=== PATIENT | female | born 1935 | race Caucasian/White ===

== ENCOUNTER 2019-01-05 15:32 | Inpatient (IN) | payer MEDICARE, BC ==
[~2019-01-05] VITALS: Ht 162.6 cm; Wt 57.3 kg
--- NOTE | 2019-01-05 15:42 | PHYS DOC ---
Past Medical History Past Medical History: A-Fib, Hypertension, Other (valvular abnormality) Past Surgical History: Pacemaker Alcohol Use: None Drug Use: None Adult General HPI HPI Patient is a 83 year old 83-year-old female who presents with a head injury after syncopal episode. She struck the back of her head when hitting the ground. Denies any chest pain. Has a previous history of syncopal episodes. Also history significant for atrial fibrillation. No reported blood thinners.[] Review of Systems Review of Systems Constitutional: Denies fever or chills [] Eyes: Denies change in visual acuity, redness, or eye pain [] HENT: Denies nasal congestion or sore throat [] Respiratory: Denies cough or shortness of breath [] Cardiovascular: No chest pain or palpitations[] GI: Denies abdominal pain, nausea, vomiting, bloody stools or diarrhea [] : Denies dysuria or hematuria [] Musculoskeletal: Denies back pain or joint pain [] Integument: Denies rash or skin lesions [] Neurologic: Denies headache, focal weakness or sensory changes [] Endocrine: Denies polyuria or polydipsia [] All other systems were reviewed and found to be within normal limits, except as documented in this note. Current Medications Current Medications Current Medications Medications (Trade) Dose Ordered Sig/Inocente Start Time Stop Time Status Last Admin Dose Admin Diphtheria/ Tetanus/Acell Pertussis (Boostrix) 0.5 ml ONCE ONCE 01/05/19 15:45 01/05/19 16:00 DC 01/05/19 16:27 0.5 ML Allergies Allergies Allergies Coded Allergies Type Severity Reaction Last Updated Verified No Known Drug Allergies 01/05/19 No Physical Exam Physical Exam Constitutional: Well developed, well nourished, no acute distress, non-toxic appearance. [] HENT: Normocephalic, occipital head wound, bilateral external ears normal, TMs are clear, no blood no fluid, oropharynx moist, no oral exudates, nose normal. [ ] Eyes: PERRLA, EOMI, conjunctiva normal, no discharge. [] Neck: Normal range of motion, no tenderness, supple, no stridor. [] Cardiovascular:Heart rate regular rhythm, no murmur [] Lungs & Thorax: Bilateral breath sounds clear to auscultation [] Abdomen: Bowel sounds normal, soft, no tenderness, no masses, no pulsatile masses. [] Skin: Warm, dry, no erythema, no rash. [] Back: No tenderness, no CVA tenderness. [] Extremities: No tenderness, no cyanosis, no clubbing, ROM intact, no edema. [] Neurologic: Alert and oriented X 3, normal motor function, normal sensory function, no focal deficits noted. [] Psychologic: Affect normal, judgement normal, mood normal. [] Current Patient Data Vital Signs Vital Signs Date Time Temp Pulse Resp B/P (MAP) Pulse Ox O2 Delivery O2 Flow Rate FiO2 01/05/19 15:48 97.6 93 16 119/73 (88) 93 Room Air 97.6 Lab Values Laboratory Tests Test 01/05/19 15:40 01/05/19 16:30 White Blood Count 5.7 x10^3/uL (4.0-11.0) Red Blood Count 4.10 x10^6/uL (3.50-5.40) Hemoglobin 11.9 g/dL (12.0-15.5) L Hematocrit 36.4 % (36.0-47.0) Mean Corpuscular Volume 89 fL (79-100) Mean Corpuscular Hemoglobin 29 pg (25-35) Mean Corpuscular Hemoglobin Concent 33 g/dL (31-37) Red Cell Distribution Width 16.4 % (11.5-14.5) H Platelet Count 151 x10^3/uL (140-400) Neutrophils (%) (Auto) 66 % (31-73) Lymphocytes (%) (Auto) 22 % (24-48) L Monocytes (%) (Auto) 5 % (0-9) Eosinophils (%) (Auto) 5 % (0-3) H Basophils (%) (Auto) 1 % (0-3) Neutrophils # (Auto) 3.8 x10^3uL (1.8-7.7) Lymphocytes # (Auto) 1.3 x10^3/uL (1.0-4.8) Monocytes # (Auto) 0.3 x10^3/uL (0.0-1.1) Eosinophils # (Auto) 0.3 x10^3/uL (0.0-0.7) Basophils # (Auto) 0.1 x10^3/uL (0.0-0.2) Prothrombin Time 15.3 SEC (11.7-14.0) H Prothrombin Time INR 1.2 (0.8-1.1) H Sodium Level 143 mmol/L (136-145) Potassium Level 3.8 mmol/L (3.5-5.1) Chloride Level 105 mmol/L (98-107) Carbon Dioxide Level 29 mmol/L (21-32) Anion Gap 9 (6-14) Blood Urea Nitrogen 27 mg/dL (7-20) H Creatinine 1.4 mg/dL (0.6-1.0) H Estimated GFR (Cockcroft-Gault) 35.8 BUN/Creatinine Ratio 19 (6-20) Glucose Level 123 mg/dL (70-99) H Calcium Level 8.5 mg/dL (8.5-10.1) Magnesium Level 2.0 mg/dL (1.8-2.4) Total Bilirubin 0.4 mg/dL (0.2-1.0) Aspartate Amino Transferase (AST) 23 U/L (15-37) Alanine Aminotransferase (ALT) 18 U/L (14-59) Alkaline Phosphatase 59 U/L (46-116) Troponin I Quantitative < 0.017 ng/mL (0.000-0.055) CO-Jrc-U-Type Natriuretic Peptide 2187 pg/mL (0-449) H Total Protein 7.1 g/dL (6.4-8.2) Albumin 3.0 g/dL (3.4-5.0) L Albumin/Globulin Ratio 0.7 (1.0-1.7) L Ammonia < 10 mcmol/L (11-34) L Laboratory Tests 01/05/19 15:40 Laboratory Tests 01/05/19 15:40 EKG EKG EKG has a regular rhythm with frequent PVCs, however P waves are not identified. Normal axis, QTC is prolonged at 511 ms, no ST elevations, no old EKG available for comparison. This was interpreted by me at 1632[] Radiology/Procedures Radiology/Procedures HISTORY: Syncope injury to back of head CT brain CT scan of brain was done without contrast. A skull fracture is not identified. There is posterior extracranial soft tissue swelling. Sinuses are clear. There is no intracranial hemorrhage or subdural hematoma. There is mild atrophy. Ventricles are mildly dilated secondary to atrophy. There is extensive decreased density in the white matter from chronic microvascular changes. IMPRESSION: 1. Extracranial swelling posteriorly. 2. No intracranial hemorrhage or subdural hematoma. 3. Atrophy and chronic microvascular change in the white matter. End impression CT cervical spine Axial CT images were obtained to the cervical spine. Sagittal and coronal reconstructed images were reviewed. Visualized lungs are clear. Thyroid is homogeneous. There are degenerative changes in the cervical spine. There is marked facet arthritis at multiple levels. There is no acute fracture. There is mild subluxation at C5-6 secondary to facet arthritis. IMPRESSION: 1. Marked degenerative changes in the cervical spine. 2. Mild degenerative subluxation at C5-6. 3. No acute fracture. Chest x-ray shows pacemaker, possible left-sided pleural effusion, no infiltrate is identified.[] Course & Med Decision Making Course & Med Decision Making Pertinent Labs and Imaging studies reviewed. (See chart for details) ED course: Patient arrived, was placed in bed, in tolerated exam well. She was transported to and from [place] with any complications. 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 Her head wound was evaluated and treated. Consultation was made with the hospitalist service for admission. Discussed findings and plan with patient and family who voiced understanding. All questions were answered. Patient was admitted in improved condition. Medical decision makin-year-old female with syncopal episode, first of cardiac enzymes are negative, what appears to be an effusion on her chest x- ray. Given the potential for cardiac/valvular abnormality of uncertain type, concerned about diuresing her especially in light of normal oxygen saturation until there is an echo available. She does not endorse any cough or fever that leads me to believe that she has pneumonia. Still waiting on urine to see if there is a urinary tract infection that may have triggered some of today's events. Her tetanus vaccine status was updated.[] Dragon Disclaimer Dragon Disclaimer This electronic medical record was generated, in whole or in part, using a voice recognition dictation system. Departure Departure Impression: Primary Impression: Syncope Additional Impression: Closed head injury Disposition: 09 ADMITTED INPATIENT Admitting Physician: Diallo Montaño Condition: IMPROVED Laceration Repair Lac Repair Indication: Left scalp laceration [] Procedure: The patient was placed in the appropriate position and the area was then cleansed and irrigated. The laceration was closed with 3 michelle. Total repaired wound length: 1.5 cm. Other Items: None The patient tolerated the procedure well. Hemostasis was achieved.. Complications: None. Problem Qualifiers Primary Impression: Syncope Syncope type: unspecified Qualified Codes: R55 - Syncope and collapse Additional Impression: Closed head injury Encounter type: initial encounter Qualified Codes: S09.90XA - Unspecified injury of head, initial encounter JUANITA BROOKS DO Jan 05, 2019 15:42
[2019-01-05] MEDS ORDERED: DIPHTH,PERTUSS(ACELL),TET TOX 0.5 ML DISP.SYRIN. VAX IM ONE (15:45)
[2019-01-05 15:55] LABS: BASO # 0.1 x10^3/uL (0.0-0.2); BASO % 1 % (0-3); EOS # 0.3 x10^3/uL (0.0-0.7); EOS % 5 % (0-3); HEMATOCRIT 36.4 % (36.0-47.0); HEMOGLOBIN 11.9 g/dL (12.0-15.5); LYMPH # 1.3 x10^3/uL (1.0-4.8); LYMPH % 22 % (24-48); MEAN CORPUSCULAR HEMOGLOBIN 29 pg (25-35); MEAN CORPUSCULAR HGB CONC 33 g/dL (31-37); MEAN CORPUSCULAR VOLUME 89 fL (79-100); MONO # 0.3 x10^3/uL (0.0-1.1); MONO % 5 % (0-9); NEUT # 3.8 x10^3uL (1.8-7.7); NEUT % 66 % (31-73); PLATELET COUNT 151 x10^3/uL (140-400); RED CELL DISTRIBUTION WIDTH 16.4 % (11.5-14.5); WHITE BLOOD COUNT 5.7 x10^3/uL (4.0-11.0)
[2019-01-05 16:03] LABS: PROTHROMBIN TIME PATIENT 15.3 SEC (11.7-14.0)
[2019-01-05 16:04] LABS: CALCIUM 8.5 mg/dL (8.5-10.1); CREATININE 1.4 mg/dL (0.6-1.0); GFR 35.8; POTASSIUM 3.8 mmol/L (3.5-5.1)
[2019-01-05 16:10] LABS: ALBUMIN/GLOBULIN RATIO 0.7 (1.0-1.7); TOTAL BILIRUBIN 0.4 mg/dL (0.2-1.0); TOTAL PROTEIN 7.1 g/dL (6.4-8.2)
--- NOTE | 2019-01-05 16:32 | RAD ---
CT brain without contrast, CT cervical spine without contrast. HISTORY: Syncope injury to back of head CT brain CT scan of brain was done without contrast. A skull fracture is not identified. There is posterior extracranial soft tissue swelling. Sinuses are clear. There is no intracranial hemorrhage or subdural hematoma. There is mild atrophy. Ventricles are mildly dilated secondary to atrophy. There is extensive decreased density in the white matter from chronic microvascular changes. IMPRESSION: 1. Extracranial swelling posteriorly. 2. No intracranial hemorrhage or subdural hematoma. 3. Atrophy and chronic microvascular change in the white matter. End impression CT cervical spine Axial CT images were obtained to the cervical spine. Sagittal and coronal reconstructed images were reviewed. Visualized lungs are clear. Thyroid is homogeneous. There are degenerative changes in the cervical spine. There is marked facet arthritis at multiple levels. There is no acute fracture. There is mild subluxation at C5-6 secondary to facet arthritis. IMPRESSION: 1. Marked degenerative changes in the cervical spine. 2. Mild degenerative subluxation at C5-6. 3. No acute fracture. Electronically signed by: Ty Redding MD (01/05/2019 4:29 PM) [facility]
--- NOTE | 2019-01-05 17:38 | RAD ---
EXAM: Chest, single view. HISTORY: Syncope. COMPARISON: None. FINDINGS: A frontal view of the chest is obtained. There is diffuse increased interstitial opacity. There is suspected left greater than right lower lobe and right mid thorax atelectasis or scarring. The heart is normal in size. There is no pneumothorax. There is a cardiac pacemaker with leads in expected position. IMPRESSION: Diffuse increased interstitial opacity suggesting interstitial infiltrate. There is suspected superimposed left greater than right lower lobe and right mid thorax atelectasis or scarring. Electronically signed by: Rula Uribe MD (01/05/2019 5:35 PM) [facility]
[2019-01-05] MEDS ORDERED: NITROGLYCERIN SUBLINGUAL 0.4 MG BOTTLE OF 25. SL PRN (18:00)
[2019-01-05] MEDS ORDERED: ACETAMINOPHEN 325 MG TABLET. PO PRN (18:00)
[2019-01-05] MEDS ORDERED: MORPHINE SULFATE 2 MG/ML VIAL. IV PRN (18:00)
[2019-01-05] MEDS ORDERED: ONDANSETRON PF 4 MG/2 ML VIAL. IV PRN (18:00)
[2019-01-05 20:00] VITALS: BP 184/96
[2019-01-05 21:00] VITALS: BP 184/96
--- NOTE | 2019-01-05 21:25 | HP ---
ADMIT DATE: 01/05/2019 CHIEF COMPLAINT: Syncope. HISTORY OF PRESENT ILLNESS: The patient is a pleasant 83-year-old female who states she was "discharged from [facility] to go home and " a few months ago. Now, she has been doing okay. 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 She had syncopal episode today. She fell on concrete, struck her head, had a laceration. It was repaired in the ER, she got a couple of michelle. We did a chest x-ray, which has shown a pleural effusion and a possible interstitial infiltrate. I have discussed the case with the ER physician. We are going to admit the patient and consult Cardiology. I am also going to get an echocardiogram to recheck the size of this aneurysm on her aortic arch. PAST MEDICAL HISTORY: AFib, hypertension, aortic arch aneurysm, pacemaker. ALLERGIES: None. FAMILY HISTORY: Coronary artery disease. SOCIAL HISTORY: She is retired. She does not drink, smoke or take drugs. MEDICATIONS: Reviewed, please refer to the MRAD. REVIEW OF SYSTEMS: GENERAL: No history of weight change, weakness or fevers. SKIN: No bruising, hair changes or rashes. EYES: No blurred, double or loss of vision. NOSE AND THROAT: No history of nosebleeds, hoarseness or sore throat. HEART: No history of palpitations, chest pain or shortness of breath on exertion. LUNGS: Denies cough, hemoptysis, wheezing or shortness of breath. GASTROINTESTINAL: Denies changes in appetite, nausea, vomiting, diarrhea or constipation. GENITOURINARY: No history of frequency, urgency, hesitancy or nocturia. NEUROLOGIC: Denies history of numbness, tingling, tremor or weakness. PSYCHIATRIC: No history of panic, anxiety or depression. ENDOCRINE: No history of heat or cold intolerance, polyuria or polydipsia. EXTREMITIES: Denies muscle weakness, joint pain, pain on walking or stiffness. PHYSICAL EXAMINATION: VITAL SIGNS: Temperature 97, pulse 80, respirations 18, blood pressure 119/73. GENERAL: She is alert, cooperative. Her daughter and granddaughter are present. They seemed to be good support for her. HEART: Normal S1, S2. LUNGS: Clear to auscultation. ABDOMEN: Soft, positive bowel sounds. EXTREMITIES: No edema. SKIN: No rashes. ENDOCRINE: No thyromegaly. LYMPHATICS: No cervical nodes. HEMATOPOIETIC: No bruising. PSYCHIATRIC: She is stable. LABORATORY DATA: White count is 5.7, hemoglobin 11.9, platelets 151. Electrolytes normal other than BUN 27, creatinine 1.4. Glucose is 123. BNP is 2187. Albumin low at 3. ASSESSMENT AND PLAN: Fall with laceration, acute on chronic renal failure, mild malnutrition, anemia. The patient has been admitted to the ICU. We are consulting Cardiology and Neurology. We will get echocardiogram to once again evaluate the morphology of this aneurysm. Consult Nephrology. Deep vein thrombosis prophylaxis. From the record, it appears she is full code, but I am going to discuss that with her. I think she is supposed to be DNR. PROGNOSIS: Guarded. BRIDGETT GILLIS DO DR: VIRGEN/jorje JOB#: [id number] / [id number]
[2019-01-05 22:00] VITALS: BP 184/96
[2019-01-05] MEDS: LISINOPRIL 10 MG TABLET PO SCH (22:05)
[2019-01-05 23:00] VITALS: BP 169/90
[2019-01-06] VITALS (7 sets, daily range): BP systolic 110–169; BP diastolic 75–90
--- NOTE | 2019-01-06 00:22 | EKG ---
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
[2019-01-06 04:14] LABS: BASO # 0.1 x10^3/uL (0.0-0.2); BASO % 1 % (0-3); EOS # 0.3 x10^3/uL (0.0-0.7); EOS % 4 % (0-3); HEMATOCRIT 35.8 % (36.0-47.0); HEMOGLOBIN 11.6 g/dL (12.0-15.5); LYMPH # 1.3 x10^3/uL (1.0-4.8); LYMPH % 18 % (24-48); MEAN CORPUSCULAR HEMOGLOBIN 29 pg (25-35); MEAN CORPUSCULAR HGB CONC 32 g/dL (31-37); MEAN CORPUSCULAR VOLUME 89 fL (79-100); MONO # 0.5 x10^3/uL (0.0-1.1); MONO % 7 % (0-9); NEUT # 4.8 x10^3uL (1.8-7.7); NEUT % 69 % (31-73); PLATELET COUNT 151 x10^3/uL (140-400); RED BLOOD COUNT 4.04 x10^6/uL (3.50-5.40); RED CELL DISTRIBUTION WIDTH 16.8 % (11.5-14.5)
[2019-01-06 04:49] LABS: ALBUMIN 2.9 g/dL (3.4-5.0); ALBUMIN/GLOBULIN RATIO 0.7 (1.0-1.7); CALCIUM 8.6 mg/dL (8.5-10.1); CREATININE 1.1 mg/dL (0.6-1.0); GFR 47.3; POTASSIUM 4.2 mmol/L (3.5-5.1); TOTAL BILIRUBIN 0.5 mg/dL (0.2-1.0)
[2019-01-06 05:11] LABS: CHOLESTEROL/HDL RATIO 4.8
[2019-01-06] MEDS ORDERED: CARV25TA2 PO (06:02)
[2019-01-06] MEDS ORDERED: ALBU2.5V14 NEB (06:02)
[2019-01-06] MEDS ORDERED: LANS30CA PO (06:02)
[2019-01-06] MEDS ORDERED: HYDR12.575 PO (06:02)
--- NOTE | 2019-01-06 07:08 | EKG ---
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
[2019-01-06] MEDS: LISINOPRIL 10 MG TABLET PO SCH (08:09)
--- NOTE | 2019-01-06 11:04 | PDOC2 ---
CONSULT Date of Consult Date of Consult DATE: 01/06/19 TIME: 10:56 Reason for Consult Reason for Consult: ELIDA Referring Physician Referring Physician: CARLIN Identification/Chief Complaint Chief Complaint FALL AND PASSING OUT Source Source: Chart review History of Present Illness Reason for Visit: THIS IS AN 83 YR OLD WITH SYNCOPE. SHE FELL HIT HER HEAD AND HAD LACERATIONS REPAIRED. HX NOTABLE FOR RECENT D/C FROM [facility] [place]. 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 NO CKD NOTED. NO NEPHROTOXINS NOTED. CR OF 1.4 ON ADMIT AND TODAY 1.1. HEMODYNAMICALLY STABLE CURRENTLY. SUSPECT SHE MAY HAVE HAD HYPOTENSION AND DECREASED RENAL PERFUSION WHILE HAVING HER SYNCOPE EPISODE. NO OTHER HX OTHER THAN SOME STRESS INCONTINENCE Past Medical History Cardiovascular: AFIB, HTN, Other (AORTIC ANEURYSM) GI: Constipation, GERD Heme/Onc: Anemia NOS Hepatobiliary: No pertinent hx Rheumatologic: Other (OA) Infectious disease: No pertinent hx ENT: No pertinent hx Renal/: No pertinent hx Past Surgical History Past Surgical History: Pacemaker Family History Family History: No Significant Social History No ALCOHOL: none Lives: with Family Current Medications Current Medications Current Medications Diphtheria/ Tetanus/Acell Pertussis (Boostrix) 0.5 ml ONCE ONCE VAX IM Last administered on 01/05/19at 16:27; Start 01/05/19 at 15:45; Stop 01/05/19 at 16:00 ; Status DC Ondansetron HCl (Zofran) 4 mg PRN Q8HRS PRN IV NAUSEA/VOMITING; Start 01/05/19 at 18:00; Stop 01/06/19 at 17:59 Morphine Sulfate (Morphine Sulfate) 2 mg PRN Q2HR PRN IV PAIN; Start 01/05/19 at 18:00; Stop 01/06/19 at 17:59 Acetaminophen (Tylenol) 650 mg PRN Q4HRS PRN PO FEVER Last administered on 01/05at 21:11; Start 01/05/19 at 18:00; Stop 01/06/19 at 17:59 Nitroglycerin (Nitrostat) 0.4 mg PRN Q5MIN PRN SL CHEST PAIN; Start 01/05/19 at 18:00; Stop 01/06/19 at 17:59 Lisinopril (Prinivil) 10 mg DAILY PO Last administered on 01/06/19at 08:09; Start 01/05/19 at 21:30 Active Scripts Active Reported Hydrochlorothiazide Capsule (Hydrochlorothiazide) 12.5 Mg Capsule 25 Mg PO DAILY Lansoprazole 30 Mg Capsule. 1 Cap PO DAILY Carvedilol 25 Mg Tablet 25 Mg PO BIDWMEALS Albuterol Sulfate Conc Neb Soln (Albuterol Sulfate) 2.5 Mg/0.5 Ml Vial.neb 1 Vial NEB Q6HRS Allergies Allergies: Coded Allergies: No Known Drug Allergies (Unverified , 01/05/19) ROS General: YES: Fatigue, Malaise, Appetite PSYCHOLOGICAL ROS: YES: Anxiety, Depression Eyes: Yes Decreased vision HEENT: YES: Heacaches ALLERGY AND IMMUNOLOGY: YES: Seasonal Allergies Respiratory: YES: Cough Cardiovascular: yes Lt Headedness Gastrointestinal: Yes Constipation Genitourinary: YES Other (NOCTURIA) Musculoskeletal: Yes Muscular Weakness Neurological: Yes Weakness Skin: Yes Dry Skin Physical Exam General: Alert, Oriented X3, Cooperative, mild distress HEENT: Atraumatic, PERRLA Lungs: Clear to auscultation Heart: Other (IRREGULAR, PPM) Abdomen: Normal bowel sounds, Soft Extremities: No clubbing Skin: No breakdown Neuro: Normal speech, Cranial nerves 3-12 NL Psych/Mental Status: Mental status NL, Mood NL MUSCULOSKELETAL: No joint tenderness, No deformity, No swelling Vitals VITALS Vital Signs Date Time Temp Pulse Resp B/P (MAP) Pulse Ox O2 Delivery O2 Flow Rate FiO2 01/06/19 08:09 63 155/72 01/06/19 08:00 Room Air 01/06/19 04:00 98.6 16 97 98.6 Labs Labs Laboratory Tests Test 01/05/19 15:40 01/05/19 16:30 01/05/19 20:50 01/05/19 23:50 White Blood Count 5.7 x10^3/uL (4.0-11.0) Red Blood Count 4.10 x10^6/uL (3.50-5.40) Hemoglobin 11.9 g/dL (12.0-15.5) Hematocrit 36.4 % (36.0-47.0) Mean Corpuscular Volume 89 fL (79-100) Mean Corpuscular Hemoglobin 29 pg (25-35) Mean Corpuscular Hemoglobin Concent 33 g/dL (31-37) Red Cell Distribution Width 16.4 % (11.5-14.5) Platelet Count 151 x10^3/uL (140-400) Neutrophils (%) (Auto) 66 % (31-73) Lymphocytes (%) (Auto) 22 % (24-48) Monocytes (%) (Auto) 5 % (0-9) Eosinophils (%) (Auto) 5 % (0-3) Basophils (%) (Auto) 1 % (0-3) Neutrophils # (Auto) 3.8 x10^3uL (1.8-7.7) Lymphocytes # (Auto) 1.3 x10^3/uL (1.0-4.8) Monocytes # (Auto) 0.3 x10^3/uL (0.0-1.1) Eosinophils # (Auto) 0.3 x10^3/uL (0.0-0.7) Basophils # (Auto) 0.1 x10^3/uL (0.0-0.2) Prothrombin Time 15.3 SEC (11.7-14.0) Prothromb Time International Ratio 1.2 (0.8-1.1) Sodium Level 143 mmol/L (136-145) Potassium Level 3.8 mmol/L (3.5-5.1) Chloride Level 105 mmol/L (98-107) Carbon Dioxide Level 29 mmol/L (21-32) Anion Gap 9 (6-14) Blood Urea Nitrogen 27 mg/dL (7-20) Creatinine 1.4 mg/dL (0.6-1.0) Estimated GFR (Cockcroft-Gault) 35.8 BUN/Creatinine Ratio 19 (6-20) Glucose Level 123 mg/dL (70-99) Calcium Level 8.5 mg/dL (8.5-10.1) Magnesium Level 2.0 mg/dL (1.8-2.4) Total Bilirubin 0.4 mg/dL (0.2-1.0) Aspartate Amino Transf (AST/SGOT) 23 U/L (15-37) Alanine Aminotransferase (ALT/SGPT) 18 U/L (14-59) Alkaline Phosphatase 59 U/L (46-116) Troponin I Quantitative < 0.017 ng/mL (0.000-0.055) < 0.017 ng/mL (0.000-0.055) < 0.017 ng/mL (0.000-0.055) CX-Ysy-H-Type Natriuretic Peptide 2187 pg/mL (0-449) Total Protein 7.1 g/dL (6.4-8.2) Albumin 3.0 g/dL (3.4-5.0) Albumin/Globulin Ratio 0.7 (1.0-1.7) Ammonia < 10 mcmol/L (11-34) Test 01/06/19 03:45 White Blood Count 7.0 x10^3/uL (4.0-11.0) Red Blood Count 4.04 x10^6/uL (3.50-5.40) Hemoglobin 11.6 g/dL (12.0-15.5) Hematocrit 35.8 % (36.0-47.0) Mean Corpuscular Volume 89 fL (79-100) Mean Corpuscular Hemoglobin 29 pg (25-35) Mean Corpuscular Hemoglobin Concent 32 g/dL (31-37) Red Cell Distribution Width 16.8 % (11.5-14.5) Platelet Count 151 x10^3/uL (140-400) Neutrophils (%) (Auto) 69 % (31-73) Lymphocytes (%) (Auto) 18 % (24-48) Monocytes (%) (Auto) 7 % (0-9) Eosinophils (%) (Auto) 4 % (0-3) Basophils (%) (Auto) 1 % (0-3) Neutrophils # (Auto) 4.8 x10^3uL (1.8-7.7) Lymphocytes # (Auto) 1.3 x10^3/uL (1.0-4.8) Monocytes # (Auto) 0.5 x10^3/uL (0.0-1.1) Eosinophils # (Auto) 0.3 x10^3/uL (0.0-0.7) Basophils # (Auto) 0.1 x10^3/uL (0.0-0.2) Sodium Level 142 mmol/L (136-145) Potassium Level 4.2 mmol/L (3.5-5.1) Chloride Level 104 mmol/L (98-107) Carbon Dioxide Level 32 mmol/L (21-32) Anion Gap 6 (6-14) Blood Urea Nitrogen 26 mg/dL (7-20) Creatinine 1.1 mg/dL (0.6-1.0) Estimated GFR (Cockcroft-Gault) 47.3 BUN/Creatinine Ratio 24 (6-20) Glucose Level 89 mg/dL (70-99) Calcium Level 8.6 mg/dL (8.5-10.1) Total Bilirubin 0.5 mg/dL (0.2-1.0) Aspartate Amino Transf (AST/SGOT) 26 U/L (15-37) Alanine Aminotransferase (ALT/SGPT) 17 U/L (14-59) Alkaline Phosphatase 57 U/L (46-116) Total Protein 7.0 g/dL (6.4-8.2) Albumin 2.9 g/dL (3.4-5.0) Albumin/Globulin Ratio 0.7 (1.0-1.7) Triglycerides Level 124 mg/dL (0-150) Cholesterol Level 179 mg/dL (0-200) LDL Cholesterol, Calculated 117 mg/dL (0-100) VLDL Cholesterol, Calculated 25 mg/dL (0-40) Non-HDL Cholesterol Calculated 142 mg/dL (0-129) HDL Cholesterol 37 mg/dL (40-60) Cholesterol/HDL Ratio 4.8 Laboratory Tests Test 01/05/19 15:40 01/05/19 16:30 01/05/19 20:50 01/05/19 23:50 White Blood Count 5.7 x10^3/uL (4.0-11.0) Red Blood Count 4.10 x10^6/uL (3.50-5.40) Hemoglobin 11.9 g/dL (12.0-15.5) Hematocrit 36.4 % (36.0-47.0) Mean Corpuscular Volume 89 fL (79-100) Mean Corpuscular Hemoglobin 29 pg (25-35) Mean Corpuscular Hemoglobin Concent 33 g/dL (31-37) Red Cell Distribution Width 16.4 % (11.5-14.5) Platelet Count 151 x10^3/uL (140-400) Neutrophils (%) (Auto) 66 % (31-73) Lymphocytes (%) (Auto) 22 % (24-48) Monocytes (%) (Auto) 5 % (0-9) Eosinophils (%) (Auto) 5 % (0-3) Basophils (%) (Auto) 1 % (0-3) Neutrophils # (Auto) 3.8 x10^3uL (1.8-7.7) Lymphocytes # (Auto) 1.3 x10^3/uL (1.0-4.8) Monocytes # (Auto) 0.3 x10^3/uL (0.0-1.1) Eosinophils # (Auto) 0.3 x10^3/uL (0.0-0.7) Basophils # (Auto) 0.1 x10^3/uL (0.0-0.2) Prothrombin Time 15.3 SEC (11.7-14.0) Prothromb Time International Ratio 1.2 (0.8-1.1) Sodium Level 143 mmol/L (136-145) Potassium Level 3.8 mmol/L (3.5-5.1) Chloride Level 105 mmol/L (98-107) Carbon Dioxide Level 29 mmol/L (21-32) Anion Gap 9 (6-14) Blood Urea Nitrogen 27 mg/dL (7-20) Creatinine 1.4 mg/dL (0.6-1.0) Estimated GFR (Cockcroft-Gault) 35.8 BUN/Creatinine Ratio 19 (6-20) Glucose Level 123 mg/dL (70-99) Calcium Level 8.5 mg/dL (8.5-10.1) Magnesium Level 2.0 mg/dL (1.8-2.4) Total Bilirubin 0.4 mg/dL (0.2-1.0) Aspartate Amino Transf (AST/SGOT) 23 U/L (15-37) Alanine Aminotransferase (ALT/SGPT) 18 U/L (14-59) Alkaline Phosphatase 59 U/L (46-116) Troponin I Quantitative < 0.017 ng/mL (0.000-0.055) < 0.017 ng/mL (0.000-0.055) < 0.017 ng/mL (0.000-0.055) XR-Biu-P-Type Natriuretic Peptide 2187 pg/mL (0-449) Total Protein 7.1 g/dL (6.4-8.2) Albumin 3.0 g/dL (3.4-5.0) Albumin/Globulin Ratio 0.7 (1.0-1.7) Ammonia < 10 mcmol/L (11-34) Test 01/06/19 03:45 White Blood Count 7.0 x10^3/uL (4.0-11.0) Red Blood Count 4.04 x10^6/uL (3.50-5.40) Hemoglobin 11.6 g/dL (12.0-15.5) Hematocrit 35.8 % (36.0-47.0) Mean Corpuscular Volume 89 fL (79-100) Mean Corpuscular Hemoglobin 29 pg (25-35) Mean Corpuscular Hemoglobin Concent 32 g/dL (31-37) Red Cell Distribution Width 16.8 % (11.5-14.5) Platelet Count 151 x10^3/uL (140-400) Neutrophils (%) (Auto) 69 % (31-73) Lymphocytes (%) (Auto) 18 % (24-48) Monocytes (%) (Auto) 7 % (0-9) Eosinophils (%) (Auto) 4 % (0-3) Basophils (%) (Auto) 1 % (0-3) Neutrophils # (Auto) 4.8 x10^3uL (1.8-7.7) Lymphocytes # (Auto) 1.3 x10^3/uL (1.0-4.8) Monocytes # (Auto) 0.5 x10^3/uL (0.0-1.1) Eosinophils # (Auto) 0.3 x10^3/uL (0.0-0.7) Basophils # (Auto) 0.1 x10^3/uL (0.0-0.2) Sodium Level 142 mmol/L (136-145) Potassium Level 4.2 mmol/L (3.5-5.1) Chloride Level 104 mmol/L (98-107) Carbon Dioxide Level 32 mmol/L (21-32) Anion Gap 6 (6-14) Blood Urea Nitrogen 26 mg/dL (7-20) Creatinine 1.1 mg/dL (0.6-1.0) Estimated GFR (Cockcroft-Gault) 47.3 BUN/Creatinine Ratio 24 (6-20) Glucose Level 89 mg/dL (70-99) Calcium Level 8.6 mg/dL (8.5-10.1) Total Bilirubin 0.5 mg/dL (0.2-1.0) Aspartate Amino Transf (AST/SGOT) 26 U/L (15-37) Alanine Aminotransferase (ALT/SGPT) 17 U/L (14-59) Alkaline Phosphatase 57 U/L (46-116) Total Protein 7.0 g/dL (6.4-8.2) Albumin 2.9 g/dL (3.4-5.0) Albumin/Globulin Ratio 0.7 (1.0-1.7) Triglycerides Level 124 mg/dL (0-150) Cholesterol Level 179 mg/dL (0-200) LDL Cholesterol, Calculated 117 mg/dL (0-100) VLDL Cholesterol, Calculated 25 mg/dL (0-40) Non-HDL Cholesterol Calculated 142 mg/dL (0-129) HDL Cholesterol 37 mg/dL (40-60) Cholesterol/HDL Ratio 4.8 Assessment/Plan Assessment/Plan IMP [id number] SYNCOPE HTN-UNCONTROLLED ? ASCENDING AORTIC ANEURYSM AFIB HX PLAN CONSIDER BETA BLOCKERS NEEDS BETTER HTN CONTROL CARDIOLOGY FOLLOWING WILL SIGN OFF PLEASE CALL IF NEEDED BRANDI QUESADA MD Jan 06, 2019 11:04
--- NOTE | 2019-01-06 11:31 | PDOC2 ---
CARDIAC CONSULT DATE OF CONSULT Date of Consult DATE: 01/06/19 TIME: 11:22 REASON FOR CONSULT Reason for Consult: Syncope Abnormal EKG Elevated BNP REFERRING PHYSICIAN Referring Physician: Dr. Montaño SOURCE Source: Chart review, Patient HISTORY OF PRESENT ILLNESS HISTORY OF PRESENT ILLNESS This is an 83 yo female, with a history of significant valvular disease, aortic aneurysm, and CHF, who presented secondary to syncopal episode. Patient reports she was walking to the garage with her daughter and passed out. [place] to the concrete floor and hit the back of her head, suffering laceration. Denies any precipitating symptoms or warnings prior to fall although she reports feeling dizzy intermittently yesterday. Denies any chest pain, palpitations, diaphoresis , GILLETTE, or nausea/vomiting. Follows closely with Dr. Sierra. Has had blood pressure medications adjusted recently; report having difficulty keeping BP normalized. Deemed poor surgical candidate for valvular surgery. Has been referred to [facility] for evaluation of further treatment options. PAST MEDICAL HISTORY Cardiovascular: AFIB, CHF, HTN, Hyperlipidemia, Valve insufficiency, Other ( aortic aneurysm ) Pulmonary: No pertinent hx CENTRAL NERVOUS SYSTEM: Other (no pertinet hx) GI: Diverticulosis, GERD Heme/Onc: Anemia NOS Psych: No pertinent hx Musculoskeletal: Osteoarthritis Rheumatologic: Rheumatoid arthritis Infectious disease: No pertinent hx ENT: No pertinent hx Renal/: Chronic renal insuff Endocrine: No pertinent hx Dermatology: No pertinent hx PAST SURGICAL HISTORY Past Surgical History: Pacemaker, Cholecystectomy, Colon Resection FAMILY HISTORY Family History: Heart Disease SOCIAL HISTORY Smoke: No ALCOHOL: none Drugs: None Lives: Alone CURRENT MEDICATIONS CURRENT MEDICATIONS Current Medications Medications (Trade) Dose Ordered Sig/Inocente Route PRN Reason Start Time Stop Time Status Last Admin Dose Admin Diphtheria/ Tetanus/Acell Pertussis (Boostrix) 0.5 ml ONCE ONCE VAX IM 01/05/19 15:45 01/05/19 16:00 DC 01/05/19 16:27 Acetaminophen (Tylenol) 650 mg PRN Q4HRS PRN PO FEVER 01/05/19 18:00 01/06/19 17:59 01/05/19 21:11 Lisinopril (Prinivil) 10 mg DAILY PO 01/05/19 21:30 01/06/19 08:09 ALLERGIES ALLERGIES: Coded Allergies: No Known Drug Allergies (Unverified , 01/05/19) ROS Review of System 14 point ROS conducted with pertinent positives noted above in HPI. PHYSICAL EXAM General: Alert, Oriented X3, Cooperative HEENT: Atraumatic, Mucous membr. moist/pink Lungs: Clear to auscultation, Normal air movement Heart: Regular rate, Other (4/6 systolic murmur ) Abdomen: Soft, No tenderness Extremities: No edema, Normal pulses Skin: No breakdown, No significant lesion Neuro: Normal speech, Sensation intact Psych/Mental Status: Mental status NL, Mood NL MUSCULOSKELETAL: Osteoarthritic changes both hands VITALS VITALS Vital Signs Date Time Temp Pulse Resp B/P (MAP) Pulse Ox O2 Delivery O2 Flow Rate FiO2 01/06/19 08:09 63 155/72 01/06/19 08:00 Room Air 01/06/19 04:00 98.6 16 97 98.6 LABS Lab: Laboratory Tests Test 01/05/19 15:40 01/05/19 16:30 01/05/19 20:50 01/05/19 23:50 White Blood Count 5.7 x10^3/uL (4.0-11.0) Red Blood Count 4.10 x10^6/uL (3.50-5.40) Hemoglobin 11.9 g/dL (12.0-15.5) Hematocrit 36.4 % (36.0-47.0) Mean Corpuscular Volume 89 fL (79-100) Mean Corpuscular Hemoglobin 29 pg (25-35) Mean Corpuscular Hemoglobin Concent 33 g/dL (31-37) Red Cell Distribution Width 16.4 % (11.5-14.5) Platelet Count 151 x10^3/uL (140-400) Neutrophils (%) (Auto) 66 % (31-73) Lymphocytes (%) (Auto) 22 % (24-48) Monocytes (%) (Auto) 5 % (0-9) Eosinophils (%) (Auto) 5 % (0-3) Basophils (%) (Auto) 1 % (0-3) Neutrophils # (Auto) 3.8 x10^3uL (1.8-7.7) Lymphocytes # (Auto) 1.3 x10^3/uL (1.0-4.8) Monocytes # (Auto) 0.3 x10^3/uL (0.0-1.1) Eosinophils # (Auto) 0.3 x10^3/uL (0.0-0.7) Basophils # (Auto) 0.1 x10^3/uL (0.0-0.2) Prothrombin Time 15.3 SEC (11.7-14.0) Prothromb Time International Ratio 1.2 (0.8-1.1) Sodium Level 143 mmol/L (136-145) Potassium Level 3.8 mmol/L (3.5-5.1) Chloride Level 105 mmol/L (98-107) Carbon Dioxide Level 29 mmol/L (21-32) Anion Gap 9 (6-14) Blood Urea Nitrogen 27 mg/dL (7-20) Creatinine 1.4 mg/dL (0.6-1.0) Estimated GFR (Cockcroft-Gault) 35.8 BUN/Creatinine Ratio 19 (6-20) Glucose Level 123 mg/dL (70-99) Calcium Level 8.5 mg/dL (8.5-10.1) Magnesium Level 2.0 mg/dL (1.8-2.4) Total Bilirubin 0.4 mg/dL (0.2-1.0) Aspartate Amino Transf (AST/SGOT) 23 U/L (15-37) Alanine Aminotransferase (ALT/SGPT) 18 U/L (14-59) Alkaline Phosphatase 59 U/L (46-116) Troponin I Quantitative < 0.017 ng/mL (0.000-0.055) < 0.017 ng/mL (0.000-0.055) < 0.017 ng/mL (0.000-0.055) GL-Mfv-K-Type Natriuretic Peptide 2187 pg/mL (0-449) Total Protein 7.1 g/dL (6.4-8.2) Albumin 3.0 g/dL (3.4-5.0) Albumin/Globulin Ratio 0.7 (1.0-1.7) Ammonia < 10 mcmol/L (11-34) Test 01/06/19 03:45 White Blood Count 7.0 x10^3/uL (4.0-11.0) Red Blood Count 4.04 x10^6/uL (3.50-5.40) Hemoglobin 11.6 g/dL (12.0-15.5) Hematocrit 35.8 % (36.0-47.0) Mean Corpuscular Volume 89 fL (79-100) Mean Corpuscular Hemoglobin 29 pg (25-35) Mean Corpuscular Hemoglobin Concent 32 g/dL (31-37) Red Cell Distribution Width 16.8 % (11.5-14.5) Platelet Count 151 x10^3/uL (140-400) Neutrophils (%) (Auto) 69 % (31-73) Lymphocytes (%) (Auto) 18 % (24-48) Monocytes (%) (Auto) 7 % (0-9) Eosinophils (%) (Auto) 4 % (0-3) Basophils (%) (Auto) 1 % (0-3) Neutrophils # (Auto) 4.8 x10^3uL (1.8-7.7) Lymphocytes # (Auto) 1.3 x10^3/uL (1.0-4.8) Monocytes # (Auto) 0.5 x10^3/uL (0.0-1.1) Eosinophils # (Auto) 0.3 x10^3/uL (0.0-0.7) Basophils # (Auto) 0.1 x10^3/uL (0.0-0.2) Sodium Level 142 mmol/L (136-145) Potassium Level 4.2 mmol/L (3.5-5.1) Chloride Level 104 mmol/L (98-107) Carbon Dioxide Level 32 mmol/L (21-32) Anion Gap 6 (6-14) Blood Urea Nitrogen 26 mg/dL (7-20) Creatinine 1.1 mg/dL (0.6-1.0) Estimated GFR (Cockcroft-Gault) 47.3 BUN/Creatinine Ratio 24 (6-20) Glucose Level 89 mg/dL (70-99) Calcium Level 8.6 mg/dL (8.5-10.1) Total Bilirubin 0.5 mg/dL (0.2-1.0) Aspartate Amino Transf (AST/SGOT) 26 U/L (15-37) Alanine Aminotransferase (ALT/SGPT) 17 U/L (14-59) Alkaline Phosphatase 57 U/L (46-116) Total Protein 7.0 g/dL (6.4-8.2) Albumin 2.9 g/dL (3.4-5.0) Albumin/Globulin Ratio 0.7 (1.0-1.7) Triglycerides Level 124 mg/dL (0-150) Cholesterol Level 179 mg/dL (0-200) LDL Cholesterol, Calculated 117 mg/dL (0-100) VLDL Cholesterol, Calculated 25 mg/dL (0-40) Non-HDL Cholesterol Calculated 142 mg/dL (0-129) HDL Cholesterol 37 mg/dL (40-60) Cholesterol/HDL Ratio 4.8 ASSESSMENT/PLAN ASSESSMENT/PLAN 1. Syncope; most probably vagal episode. No acute events or further dizziness 2. PAFIB; maintaining SR 3. SSS s/p PPM ([facility]) 4. Chronic diastolic HF; compensated 6. Valvular insufficiency; follows with [facility]. Has been referred to for further treatment options 7. Hypertension; mildly elevated 8. Hyperlipidemia; statin 9. ELIDA on CKD Recommendations Obtain orthostatic vital Check echo to assess LV systolic function further evaluate valvular disease Resume BB- lower to 12.5mg. Hold HCTZ for now Interrogate PPM ASA for stroke prevention. Poor candidate for OAC given age, intermittent dizziness and falls Obtain cardiac records from [facility] Further recommendation pending above. VIRGIL TYSON APRN Jan 06, 2019 11:31
--- NOTE | 2019-01-06 11:32 | CONS ---
DATE OF CONSULTATION: PULMONARY CONSULTATION REASON FOR CONSULTATION: Syncope, abnormal chest x-ray. HISTORY OF PRESENT ILLNESS: The patient is an 83-year-old who usually follows at [facility]. The patient has a history of aortic arch aneurysm and valvular heart disease, likely mitral per history from the daughter. She was brought in to the hospital after she had a syncopal episode. She fell on the concrete and stuck her head and had a laceration. It was repaired in the ER. The patient's chest x-ray showed some vascular congestion and small pleural effusions. There was no old x-ray available for comparison. It was a poor inspiratory film. She is on room air. She has no cough, no chest pain, no shortness of breath. She has no history of tobacco use. No headaches, no nausea, vomiting, no diarrhea. PAST MEDICAL HISTORY: History of AFib, history of hypertension, history of aortic arch aneurysm, history of pacemaker, history of valvular heart disease. PAST SURGICAL HISTORY: No recent surgeries. FAMILY HISTORY: Coronary artery disease. ALLERGIES: None. SOCIAL HISTORY: Nonsmoker. REVIEW OF SYSTEMS: Twelve-point system obtained. Pertinent positives discussed in my history of present illness, otherwise noncontributory. All systems that were negative were reviewed as well. MEDICATIONS: All reviewed as listed in the MRAD. PHYSICAL EXAMINATION: VITAL SIGNS: Reviewed. Pulse ox 97% on room air. NECK: Supple. LUNGS: Clear. CARDIOVASCULAR: Regular rate and rhythm. ABDOMEN: Soft, nontender. EXTREMITIES: With no pitting edema. LABORATORY AND DIAGNOSTIC DATA: Labs were reviewed. White cell count is 7.0, hemoglobin 11.6 and platelets are 151. BUN 26, creatinine 1.1. Troponin less than 0.017. IMPRESSION: 1. Syncopal episodes, likely cardiac etiology. 2. The patient with history of valvular heart disease and history of aortic arch aneurysm. Being followed at [facility]. Echo has been ordered. We will await for the results. 3. Abnormal chest x-ray with likely mild congestive heart failure. However, this was a poor inspiratory film. She lacks any symptoms of pneumonia. I will repeat another chest x-ray. 4. No significant history of tobacco use. RECOMMENDATIONS: 1. The patient is clinically asymptomatic from a pulmonary standpoint and on room air. 2. Await Cardiology recommendation. 3. Follow up chest x-ray in next 24 hours if she is still in the hospital. 4. We will leave up to Cardiology regarding discharge plans. 5. We will review the echo report. Discussed with the patient's daughter and RN. Critical care time 30 minutes. REINIER SHEETS MD DR: LAVONNE/jorje JOB#: [id number] / [id number]
--- NOTE | 2019-01-06 13:03 | PDOC ---
PROGRESS NOTES History of Present Illness History of Present Illness ASSESSMENT AND PLAN: Fall with laceration, She struck the back of her head when hitting the ground. Denies any chest pain. Has a previous history of syncopal episodes acute on chronic renal failure, mildmalnutrition, anemia. The ascending aorta is moderately dilated at 4.0 cm Calculated aortic valve area is 1.0 cm2 with maximum pressure gradient of 22 mmHg and mean pressure gradient of 14 mmHg. Doppler and color-flow analysis revealed mild aortic stenosis, visually the valve appears at least moderately stenotic. pacemaker lead in the right ventricle. ICU. monitoring EEG. consult Cardiology and Neurology. echocardiogram evaluate the morphology of aneurysm. Consult Nephrology. Deep vein thrombosis prophylaxis. full code, . 36 min cc time Vitals Vitals Vital Signs Date Time Temp Pulse Resp B/P (MAP) Pulse Ox O2 Delivery O2 Flow Rate FiO2 01/06/19 11:51 98.6 103 16 155/90 (111) 98 Room Air 98.6 Physical Exam General: Alert, Oriented X3, Cooperative, mild distress Heart: Regular rate, Other (IRREGULAR, PPM) Lungs: Clear Abdomen: Normal bowel sounds, Soft Extremities: No clubbing Skin: No breakdown Labs LABS TDI Lateral E' P. V 10.43cm/s Medial E' P. V 4.05cm/s E/Lateral E' 5.7 E/Medial E' 14.6 Tricuspid Valve TR P. Velocity 233cm/s RAP ESTIMATE 3mmHg TR Peak Gr. 22mmHg RVSP 25mmHg Pulmonary Vein S1 Velocity 46.1cm/s S2 Velocity 27.19cm/s D2 Velocity 27.2cm/s LEFT VENTRICLE The left ventricle is normal size. There is normal left ventricular wall thickness. The left ventricular systolic function is normal and the ejection fraction is within normal range. The Ejection Fraction is 55-60%. Apical motion consistent with pacemaker activation. Transmitral Doppler flow pattern is Grade I-abnormal relaxation pattern. RIGHT VENTRICLE The right ventricle is normal size. The right ventricular systolic function is normal. There is a pacemaker lead in the right ventricle. ATRIA The left atrium is mildly dilated. The right atrium is mildly dilated. The interatrial septum is intact with no evidence for an atrial septal defect or patent foramen ovale as noted on 2-D or Doppler imaging. AORTIC VALVE The aortic valve is calcified and displays decreased opening. Doppler and Color Flow revealed mild aortic regurgitation. Calculated aortic valve area is 1.0 cm2 with maximum pressure gradient of 22 mmHg and mean pressure gradient of 14 mmHg. Doppler and color-flow analysis revealed mild aortic stenosis, visually the valve appears at least moderately stenotic. MITRAL VALVE The mitral valve is calcified but opens well. Mitral annular calcification is mild to moderate. There is no evidence of mitral valve prolapse. There is no mitral valve stenosis. Doppler and Color Flow revealed no mitral valve regurgitation noted. TRICUSPID VALVE The tricuspid valve is normal in structure and function. Doppler and Color Flow revealed mild tricuspid regurgitation. The PA pressure was estimated at 25 mmHg. There is no tricuspid valve stenosis. PULMONIC VALVE The pulmonic valve is not well visualized. Doppler and Color Flow revealed trace to mild pulmonic valvular regurgitation. There is no pulmonic valvular stenosis. GREAT VESSELS The aortic root is mildly enlarged. The ascending aorta is moderately dilated at 4.0 cm The IVC is normal in size and collapses >50% with inspiration. PERICARDIAL EFFUSION There is no evidence of significant pericardial effusion. Critical Notification Critical Value: No <Conclusion> The left ventricular systolic function is normal and the ejection fraction is within normal range. The Ejection Fraction is 55-60%. There is a pacemaker lead in the right ventricle. Calculated aortic valve area is 1.0 cm2 with maximum pressure gradient of 22 mmHg and mean pressure gradient of 14 mmHg. Doppler and color-flow analysis revealed mild aortic stenosis, visually the valve appears at least moderately stenotic. The ascending aorta is moderately dilated at 4.0 cm Signed by : Tamika Villar, Electronically Approved : 01/06/2019 17:22:41 DICTATED and SIGNED BY: TAMIKA VILLAR MD DATE: 01/06/19 1722 [id number] CC: BRIDGETT GILLIS III DO; TAMIKA VILLAR MD; UNKNOWN PCP NAME ~ Page of Laboratory Tests Test 01/05/19 15:40 01/05/19 16:30 01/05/19 20:50 01/05/19 23:50 White Blood Count 5.7 x10^3/uL (4.0-11.0) Red Blood Count 4.10 x10^6/uL (3.50-5.40) Hemoglobin 11.9 g/dL (12.0-15.5) Hematocrit 36.4 % (36.0-47.0) Mean Corpuscular Volume 89 fL (79-100) Mean Corpuscular Hemoglobin 29 pg (25-35) Mean Corpuscular Hemoglobin Concent 33 g/dL (31-37) Red Cell Distribution Width 16.4 % (11.5-14.5) Platelet Count 151 x10^3/uL (140-400) Neutrophils (%) (Auto) 66 % (31-73) Lymphocytes (%) (Auto) 22 % (24-48) Monocytes (%) (Auto) 5 % (0-9) Eosinophils (%) (Auto) 5 % (0-3) Basophils (%) (Auto) 1 % (0-3) Neutrophils # (Auto) 3.8 x10^3uL (1.8-7.7) Lymphocytes # (Auto) 1.3 x10^3/uL (1.0-4.8) Monocytes # (Auto) 0.3 x10^3/uL (0.0-1.1) Eosinophils # (Auto) 0.3 x10^3/uL (0.0-0.7) Basophils # (Auto) 0.1 x10^3/uL (0.0-0.2) Prothrombin Time 15.3 SEC (11.7-14.0) Prothromb Time International Ratio 1.2 (0.8-1.1) Sodium Level 143 mmol/L (136-145) Potassium Level 3.8 mmol/L (3.5-5.1) Chloride Level 105 mmol/L (98-107) Carbon Dioxide Level 29 mmol/L (21-32) Anion Gap 9 (6-14) Blood Urea Nitrogen 27 mg/dL (7-20) Creatinine 1.4 mg/dL (0.6-1.0) Estimated GFR (Cockcroft-Gault) 35.8 BUN/Creatinine Ratio 19 (6-20) Glucose Level 123 mg/dL (70-99) Calcium Level 8.5 mg/dL (8.5-10.1) Magnesium Level 2.0 mg/dL (1.8-2.4) Total Bilirubin 0.4 mg/dL (0.2-1.0) Aspartate Amino Transf (AST/SGOT) 23 U/L (15-37) Alanine Aminotransferase (ALT/SGPT) 18 U/L (14-59) Alkaline Phosphatase 59 U/L (46-116) Troponin I Quantitative < 0.017 ng/mL (0.000-0.055) < 0.017 ng/mL (0.000-0.055) < 0.017 ng/mL (0.000-0.055) NV-Sas-Q-Type Natriuretic Peptide 2187 pg/mL (0-449) Total Protein 7.1 g/dL (6.4-8.2) Albumin 3.0 g/dL (3.4-5.0) Albumin/Globulin Ratio 0.7 (1.0-1.7) Ammonia < 10 mcmol/L (11-34) Test 01/06/19 03:45 White Blood Count 7.0 x10^3/uL (4.0-11.0) Red Blood Count 4.04 x10^6/uL (3.50-5.40) Hemoglobin 11.6 g/dL (12.0-15.5) Hematocrit 35.8 % (36.0-47.0) Mean Corpuscular Volume 89 fL (79-100) Mean Corpuscular Hemoglobin 29 pg (25-35) Mean Corpuscular Hemoglobin Concent 32 g/dL (31-37) Red Cell Distribution Width 16.8 % (11.5-14.5) Platelet Count 151 x10^3/uL (140-400) Neutrophils (%) (Auto) 69 % (31-73) Lymphocytes (%) (Auto) 18 % (24-48) Monocytes (%) (Auto) 7 % (0-9) Eosinophils (%) (Auto) 4 % (0-3) Basophils (%) (Auto) 1 % (0-3) Neutrophils # (Auto) 4.8 x10^3uL (1.8-7.7) Lymphocytes # (Auto) 1.3 x10^3/uL (1.0-4.8) Monocytes # (Auto) 0.5 x10^3/uL (0.0-1.1) Eosinophils # (Auto) 0.3 x10^3/uL (0.0-0.7) Basophils # (Auto) 0.1 x10^3/uL (0.0-0.2) Sodium Level 142 mmol/L (136-145) Potassium Level 4.2 mmol/L (3.5-5.1) Chloride Level 104 mmol/L (98-107) Carbon Dioxide Level 32 mmol/L (21-32) Anion Gap 6 (6-14) Blood Urea Nitrogen 26 mg/dL (7-20) Creatinine 1.1 mg/dL (0.6-1.0) Estimated GFR (Cockcroft-Gault) 47.3 BUN/Creatinine Ratio 24 (6-20) Glucose Level 89 mg/dL (70-99) Calcium Level 8.6 mg/dL (8.5-10.1) Total Bilirubin 0.5 mg/dL (0.2-1.0) Aspartate Amino Transf (AST/SGOT) 26 U/L (15-37) Alanine Aminotransferase (ALT/SGPT) 17 U/L (14-59) Alkaline Phosphatase 57 U/L (46-116) Total Protein 7.0 g/dL (6.4-8.2) Albumin 2.9 g/dL (3.4-5.0) Albumin/Globulin Ratio 0.7 (1.0-1.7) Triglycerides Level 124 mg/dL (0-150) Cholesterol Level 179 mg/dL (0-200) LDL Cholesterol, Calculated 117 mg/dL (0-100) VLDL Cholesterol, Calculated 25 mg/dL (0-40) Non-HDL Cholesterol Calculated 142 mg/dL (0-129) HDL Cholesterol 37 mg/dL (40-60) Cholesterol/HDL Ratio 4.8 Comment Review of Relevant I have reviewed the following items claudio (where applicable) has been applied. Labs Laboratory Tests Test 01/05/19 15:40 01/05/19 16:30 01/05/19 20:50 01/05/19 23:50 White Blood Count 5.7 x10^3/uL (4.0-11.0) Red Blood Count 4.10 x10^6/uL (3.50-5.40) Hemoglobin 11.9 g/dL (12.0-15.5) Hematocrit 36.4 % (36.0-47.0) Mean Corpuscular Volume 89 fL (79-100) Mean Corpuscular Hemoglobin 29 pg (25-35) Mean Corpuscular Hemoglobin Concent 33 g/dL (31-37) Red Cell Distribution Width 16.4 % (11.5-14.5) Platelet Count 151 x10^3/uL (140-400) Neutrophils (%) (Auto) 66 % (31-73) Lymphocytes (%) (Auto) 22 % (24-48) Monocytes (%) (Auto) 5 % (0-9) Eosinophils (%) (Auto) 5 % (0-3) Basophils (%) (Auto) 1 % (0-3) Neutrophils # (Auto) 3.8 x10^3uL (1.8-7.7) Lymphocytes # (Auto) 1.3 x10^3/uL (1.0-4.8) Monocytes # (Auto) 0.3 x10^3/uL (0.0-1.1) Eosinophils # (Auto) 0.3 x10^3/uL (0.0-0.7) Basophils # (Auto) 0.1 x10^3/uL (0.0-0.2) Prothrombin Time 15.3 SEC (11.7-14.0) Prothromb Time International Ratio 1.2 (0.8-1.1) Sodium Level 143 mmol/L (136-145) Potassium Level 3.8 mmol/L (3.5-5.1) Chloride Level 105 mmol/L (98-107) Carbon Dioxide Level 29 mmol/L (21-32) Anion Gap 9 (6-14) Blood Urea Nitrogen 27 mg/dL (7-20) Creatinine 1.4 mg/dL (0.6-1.0) Estimated GFR (Cockcroft-Gault) 35.8 BUN/Creatinine Ratio 19 (6-20) Glucose Level 123 mg/dL (70-99) Calcium Level 8.5 mg/dL (8.5-10.1) Magnesium Level 2.0 mg/dL (1.8-2.4) Total Bilirubin 0.4 mg/dL (0.2-1.0) Aspartate Amino Transf (AST/SGOT) 23 U/L (15-37) Alanine Aminotransferase (ALT/SGPT) 18 U/L (14-59) Alkaline Phosphatase 59 U/L (46-116) Troponin I Quantitative < 0.017 ng/mL (0.000-0.055) < 0.017 ng/mL (0.000-0.055) < 0.017 ng/mL (0.000-0.055) UX-Zrr-J-Type Natriuretic Peptide 2187 pg/mL (0-449) Total Protein 7.1 g/dL (6.4-8.2) Albumin 3.0 g/dL (3.4-5.0) Albumin/Globulin Ratio 0.7 (1.0-1.7) Ammonia < 10 mcmol/L (11-34) Test 01/06/19 03:45 White Blood Count 7.0 x10^3/uL (4.0-11.0) Red Blood Count 4.04 x10^6/uL (3.50-5.40) Hemoglobin 11.6 g/dL (12.0-15.5) Hematocrit 35.8 % (36.0-47.0) Mean Corpuscular Volume 89 fL (79-100) Mean Corpuscular Hemoglobin 29 pg (25-35) Mean Corpuscular Hemoglobin Concent 32 g/dL (31-37) Red Cell Distribution Width 16.8 % (11.5-14.5) Platelet Count 151 x10^3/uL (140-400) Neutrophils (%) (Auto) 69 % (31-73) Lymphocytes (%) (Auto) 18 % (24-48) Monocytes (%) (Auto) 7 % (0-9) Eosinophils (%) (Auto) 4 % (0-3) Basophils (%) (Auto) 1 % (0-3) Neutrophils # (Auto) 4.8 x10^3uL (1.8-7.7) Lymphocytes # (Auto) 1.3 x10^3/uL (1.0-4.8) Monocytes # (Auto) 0.5 x10^3/uL (0.0-1.1) Eosinophils # (Auto) 0.3 x10^3/uL (0.0-0.7) Basophils # (Auto) 0.1 x10^3/uL (0.0-0.2) Sodium Level 142 mmol/L (136-145) Potassium Level 4.2 mmol/L (3.5-5.1) Chloride Level 104 mmol/L (98-107) Carbon Dioxide Level 32 mmol/L (21-32) Anion Gap 6 (6-14) Blood Urea Nitrogen 26 mg/dL (7-20) Creatinine 1.1 mg/dL (0.6-1.0) Estimated GFR (Cockcroft-Gault) 47.3 BUN/Creatinine Ratio 24 (6-20) Glucose Level 89 mg/dL (70-99) Calcium Level 8.6 mg/dL (8.5-10.1) Total Bilirubin 0.5 mg/dL (0.2-1.0) Aspartate Amino Transf (AST/SGOT) 26 U/L (15-37) Alanine Aminotransferase (ALT/SGPT) 17 U/L (14-59) Alkaline Phosphatase 57 U/L (46-116) Total Protein 7.0 g/dL (6.4-8.2) Albumin 2.9 g/dL (3.4-5.0) Albumin/Globulin Ratio 0.7 (1.0-1.7) Triglycerides Level 124 mg/dL (0-150) Cholesterol Level 179 mg/dL (0-200) LDL Cholesterol, Calculated 117 mg/dL (0-100) VLDL Cholesterol, Calculated 25 mg/dL (0-40) Non-HDL Cholesterol Calculated 142 mg/dL (0-129) HDL Cholesterol 37 mg/dL (40-60) Cholesterol/HDL Ratio 4.8 Laboratory Tests Test 01/05/19 15:40 01/05/19 16:30 01/05/19 20:50 01/05/19 23:50 White Blood Count 5.7 x10^3/uL (4.0-11.0) Red Blood Count 4.10 x10^6/uL (3.50-5.40) Hemoglobin 11.9 g/dL (12.0-15.5) Hematocrit 36.4 % (36.0-47.0) Mean Corpuscular Volume 89 fL (79-100) Mean Corpuscular Hemoglobin 29 pg (25-35) Mean Corpuscular Hemoglobin Concent 33 g/dL (31-37) Red Cell Distribution Width 16.4 % (11.5-14.5) Platelet Count 151 x10^3/uL (140-400) Neutrophils (%) (Auto) 66 % (31-73) Lymphocytes (%) (Auto) 22 % (24-48) Monocytes (%) (Auto) 5 % (0-9) Eosinophils (%) (Auto) 5 % (0-3) Basophils (%) (Auto) 1 % (0-3) Neutrophils # (Auto) 3.8 x10^3uL (1.8-7.7) Lymphocytes # (Auto) 1.3 x10^3/uL (1.0-4.8) Monocytes # (Auto) 0.3 x10^3/uL (0.0-1.1) Eosinophils # (Auto) 0.3 x10^3/uL (0.0-0.7) Basophils # (Auto) 0.1 x10^3/uL (0.0-0.2) Prothrombin Time 15.3 SEC (11.7-14.0) Prothromb Time International Ratio 1.2 (0.8-1.1) Sodium Level 143 mmol/L (136-145) Potassium Level 3.8 mmol/L (3.5-5.1) Chloride Level 105 mmol/L (98-107) Carbon Dioxide Level 29 mmol/L (21-32) Anion Gap 9 (6-14) Blood Urea Nitrogen 27 mg/dL (7-20) Creatinine 1.4 mg/dL (0.6-1.0) Estimated GFR (Cockcroft-Gault) 35.8 BUN/Creatinine Ratio 19 (6-20) Glucose Level 123 mg/dL (70-99) Calcium Level 8.5 mg/dL (8.5-10.1) Magnesium Level 2.0 mg/dL (1.8-2.4) Total Bilirubin 0.4 mg/dL (0.2-1.0) Aspartate Amino Transf (AST/SGOT) 23 U/L (15-37) Alanine Aminotransferase (ALT/SGPT) 18 U/L (14-59) Alkaline Phosphatase 59 U/L (46-116) Troponin I Quantitative < 0.017 ng/mL (0.000-0.055) < 0.017 ng/mL (0.000-0.055) < 0.017 ng/mL (0.000-0.055) UP-Eqb-R-Type Natriuretic Peptide 2187 pg/mL (0-449) Total Protein 7.1 g/dL (6.4-8.2) Albumin 3.0 g/dL (3.4-5.0) Albumin/Globulin Ratio 0.7 (1.0-1.7) Ammonia < 10 mcmol/L (11-34) Test 01/06/19 03:45 White Blood Count 7.0 x10^3/uL (4.0-11.0) Red Blood Count 4.04 x10^6/uL (3.50-5.40) Hemoglobin 11.6 g/dL (12.0-15.5) Hematocrit 35.8 % (36.0-47.0) Mean Corpuscular Volume 89 fL (79-100) Mean Corpuscular Hemoglobin 29 pg (25-35) Mean Corpuscular Hemoglobin Concent 32 g/dL (31-37) Red Cell Distribution Width 16.8 % (11.5-14.5) Platelet Count 151 x10^3/uL (140-400) Neutrophils (%) (Auto) 69 % (31-73) Lymphocytes (%) (Auto) 18 % (24-48) Monocytes (%) (Auto) 7 % (0-9) Eosinophils (%) (Auto) 4 % (0-3) Basophils (%) (Auto) 1 % (0-3) Neutrophils # (Auto) 4.8 x10^3uL (1.8-7.7) Lymphocytes # (Auto) 1.3 x10^3/uL (1.0-4.8) Monocytes # (Auto) 0.5 x10^3/uL (0.0-1.1) Eosinophils # (Auto) 0.3 x10^3/uL (0.0-0.7) Basophils # (Auto) 0.1 x10^3/uL (0.0-0.2) Sodium Level 142 mmol/L (136-145) Potassium Level 4.2 mmol/L (3.5-5.1) Chloride Level 104 mmol/L (98-107) Carbon Dioxide Level 32 mmol/L (21-32) Anion Gap 6 (6-14) Blood Urea Nitrogen 26 mg/dL (7-20) Creatinine 1.1 mg/dL (0.6-1.0) Estimated GFR (Cockcroft-Gault) 47.3 BUN/Creatinine Ratio 24 (6-20) Glucose Level 89 mg/dL (70-99) Calcium Level 8.6 mg/dL (8.5-10.1) Total Bilirubin 0.5 mg/dL (0.2-1.0) Aspartate Amino Transf (AST/SGOT) 26 U/L (15-37) Alanine Aminotransferase (ALT/SGPT) 17 U/L (14-59) Alkaline Phosphatase 57 U/L (46-116) Total Protein 7.0 g/dL (6.4-8.2) Albumin 2.9 g/dL (3.4-5.0) Albumin/Globulin Ratio 0.7 (1.0-1.7) Triglycerides Level 124 mg/dL (0-150) Cholesterol Level 179 mg/dL (0-200) LDL Cholesterol, Calculated 117 mg/dL (0-100) VLDL Cholesterol, Calculated 25 mg/dL (0-40) Non-HDL Cholesterol Calculated 142 mg/dL (0-129) HDL Cholesterol 37 mg/dL (40-60) Cholesterol/HDL Ratio 4.8 Medications Current Medications Diphtheria/ Tetanus/Acell Pertussis (Boostrix) 0.5 ml ONCE ONCE VAX IM Last administered on 01/05/19at 16:27; Start 01/05/19 at 15:45; Stop 01/05/19 at 16:00 ; Status DC Ondansetron HCl (Zofran) 4 mg PRN Q8HRS PRN IV NAUSEA/VOMITING; Start 01/05/19 at 18:00; Stop 01/06/19 at 17:59 Morphine Sulfate (Morphine Sulfate) 2 mg PRN Q2HR PRN IV PAIN; Start 01/05/19 at 18:00; Stop 01/06/19 at 17:59 Acetaminophen (Tylenol) 650 mg PRN Q4HRS PRN PO FEVER Last administered on 01/05at 21:11; Start 01/05/19 at 18:00; Stop 01/06/19 at 17:59 Nitroglycerin (Nitrostat) 0.4 mg PRN Q5MIN PRN SL CHEST PAIN; Start 01/05/19 at 18:00; Stop 01/06/19 at 17:59 Lisinopril (Prinivil) 10 mg DAILY PO Last administered on 01/06/19at 08:09; Start 01/05/19 at 21:30 Active Scripts Active Reported Hydrochlorothiazide Capsule (Hydrochlorothiazide) 12.5 Mg Capsule 25 Mg PO DAILY Lansoprazole 30 Mg Capsule.dr 1 Cap PO DAILY Carvedilol 25 Mg Tablet 25 Mg PO BIDWMEALS Albuterol Sulfate Conc Neb Soln (Albuterol Sulfate) 2.5 Mg/0.5 Ml Vial.neb 1 Vial NEB Q6HRS Vitals/I & O Vital Sign - Last 24 Hours 01/05/19 01/05/19 01/05/19 01/05/19 15:48 18:00 20:00 20:00 Temp 97.6 98.6 97.6 98.6 Pulse 93 68 64 Resp 16 16 B/P (MAP) 119/73 (88) 131/79 (96) 184/96 (125) Pulse Ox 93 95 95 O2 Delivery Room Air Room Air Room Air 01/05/19 01/05/19 01/05/19 01/05/19 21:00 22:00 22:05 23:00 Temp 98.2 98.8 98.6 98.2 98.8 98.6 Pulse 64 66 71 63 Resp 16 16 16 B/P (MAP) 184/96 (125) 184/96 (125) 189/90 169/90 (116) Pulse Ox 95 95 97 O2 Delivery Room Air Room Air Room Air 01/06/19 01/06/19 01/06/19 01/06/19 02:00 04:00 08:00 08:00 Temp 98.6 98.6 98.6 98.6 98.6 98.6 Pulse 64 63 63 Resp 20 16 16 B/P (MAP) 149/86 (107) 169/90 (116) 169/90 (116) Pulse Ox 94 97 97 O2 Delivery Room Air Room Air Room Air Room Air 01/06/19 01/06/19 08:09 11:51 Temp 98.6 98.6 Pulse 63 103 Resp 16 B/P (MAP) 155/72 155/90 (111) Pulse Ox 98 O2 Delivery Room Air Intake and Output 01/05/19 01/05/19 01/06/19 15:00 23:00 07:00 Intake Total 120 ml 480 ml Output Total 900 ml Balance 120 ml -420 ml NORRIS ARORA MD Jan 06, 2019 13:02
--- NOTE | 2019-01-06 15:10 | NUR ---
SS following for discharge planning. SS reviewed pt chart. Pt is from home with spouse and is currently on room air. No discharge needs noted at this time. SS will continue to follow for pending discharge needs.
--- NOTE | 2019-01-06 17:23 | CARD ---
MR#: [id number] Date of Study: 01/06/2019 Ordering Physician: BRIDGETT GILLIS, Referring Physician: BRIDGETT GILLIS Tech: Kaleigh Bright RDCS APPROVED REPORT EXAM: Two-dimensional and M-mode echocardiogram with Doppler and color Doppler. Other Information Quality : Good INDICATION Aortic Valve Disease History of Aortic Arch Aneurysm 2D DIMENSIONS RVDd2.2 (2.9-3.5cm)Left Atrium(2D)3.3 (1.6-4.0cm) IVSd1.0 (0.7-1.1cm)Aortic Root(2D)3.2 (2.0-3.7cm) LVDd4.5 (3.9-5.9cm)LVOT Diameter2.0 (1.8-2.4cm) PWd1.0 (0.7-1.1cm)LVDs2.2 (2.5-4.0cm) FS (%) 30.0 %SV74.6 ml LVEF(%)60.0 (>50%) M-Mode DIMENSIONS Aortic Cusp Exc1.03 (1.5-2.0cm) Aortic Valve AoV Peak Cosme.236.0cm/sAoV VTI44.3cm AO Peak GR.22.3mmHgLVOT VTI 14.79cm AO Mean GR.14mmHgAVA (VTI)1.00cm2 AI P 1/2 Juqm147to Mitral Valve MV E Gyclecwo73.3cm/sMV DECEL [id number] MV A Bfqidirh10.0cm/sE/A Ratio0.7 TDI Lateral E' P. V10.43cm/sMedial E' P. V4.05cm/s E/Lateral E'5.7E/Medial E'14.6 Tricuspid Valve TR P. Pidrgsox826oe/sRAP [id number] TR Peak Gr.40gkAmWLCT60gsPc Pulmonary Vein S1 Yvmbjvkp35.1cm/sS2 Mmhqvodk63.19cm/s D2 Mgjovxrb07.2cm/s LEFT VENTRICLE The left ventricle is normal size. There is normal left ventricular wall thickness. The left ventricu lar systolic function is normal and the ejection fraction is within normal range. The Ejection Fracti on is 55-60%. Apical motion consistent with pacemaker activation. Transmitral Doppler flow pattern is Grade I-abnormal relaxation pattern. RIGHT VENTRICLE The right ventricle is normal size. The right ventricular systolic function is normal. There is a pac emaker lead in the right ventricle. ATRIA The left atrium is mildly dilated. The right atrium is mildly dilated. The interatrial septum is inta ct with no evidence for an atrial septal defect or patent foramen ovale as noted on 2-D or Doppler im aging. AORTIC VALVE The aortic valve is calcified and displays decreased opening. Doppler and Color Flow revealed mild ao rtic regurgitation. Calculated aortic valve area is 1.0 cm2 with maximum pressure gradient of 22 mmHg and mean pressure gradient of 14 mmHg. Doppler and color-flow analysis revealed mild aortic stenosis , visually the valve appears at least moderately stenotic. MITRAL VALVE The mitral valve is calcified but opens well. Mitral annular calcification is mild to moderate. There is no evidence of mitral valve prolapse. There is no mitral valve stenosis. Doppler and Color Flow r evealed no mitral valve regurgitation noted. TRICUSPID VALVE The tricuspid valve is normal in structure and function. Doppler and Color Flow revealed mild tricusp id regurgitation. The PA pressure was estimated at 25 mmHg. There is no tricuspid valve stenosis. PULMONIC VALVE The pulmonic valve is not well visualized. Doppler and Color Flow revealed trace to mild pulmonic maribel vular regurgitation. There is no pulmonic valvular stenosis. GREAT VESSELS The aortic root is mildly enlarged. The ascending aorta is moderately dilated at 4.0 cm The IVC is no rmal in size and collapses >50% with inspiration. PERICARDIAL EFFUSION There is no evidence of significant pericardial effusion. Critical Notification Critical Value: No <Conclusion> The left ventricular systolic function is normal and the ejection fraction is within normal range. Th e Ejection Fraction is 55-60%. There is a pacemaker lead in the right ventricle. Calculated aortic valve area is 1.0 cm2 with maximum pressure gradient of 22 mmHg and mean pressure g radient of 14 mmHg. Doppler and color-flow analysis revealed mild aortic stenosis, visually the valve appears at least moderately stenotic. The ascending aorta is moderately dilated at 4.0 cm Signed by : Kip Reeves, Electronically Approved : 01/06/2019 17:22:41
--- NOTE | 2019-01-06 17:42 | PDOC2 ---
NEUROLOGY CONSULT Date of Admission Date of Admission DATE: 01/06/19 TIME: 17:34 Reason for Consult Reason for Consult: IMPRESSION: Syncopal spell. Fall. Scalp laceration. Metabolic encephalopathy. AFib. HTN. HLD. Degenerative spine disease. Pacemaker in site. RECOMMENDATIONS/PLAN: Continue medical treatment. EEG. Lab: see orders. Consulted Cardiology. Discussed with her daughter at bedside in ICU. HISTORY OF THE PRESENT ILLNESS: This is an 83-year-old female patient with history of significant valvular disease, aortic aneurysm, and CHF, who presented secondary to syncopal episode. Per ER, patient reports she was walking to the garage with her daughter and passed out. Fell to the concrete floor and hit the back of her head , suffering laceration. Patient denies any precipitating symptoms or warnings prior to fall although she reports feeling dizzy intermittently yesterday. Denies any chest pain, palpitations, diaphoresis, GILLETTE, or nausea/vomiting. Follows closely with Dr. Sierra. Has had blood pressure medications adjusted recently; report having difficulty keeping BP normalized. Deemed poor surgical candidate for valvular surgery. She was referred to [facility] for evaluation of further treatment options. PAST MEDICAL HISTORY Cardiovascular: AFIB, CHF, HTN, Hyperlipidemia, Valve insufficiency, Other ( aortic aneurysm ) Pulmonary: No pertinent hx CENTRAL NERVOUS SYSTEM: Other (no pertinet hx) GI: Diverticulosis, GERD Heme/Onc: Anemia NOS Psych: No pertinent hx Musculoskeletal: Osteoarthritis Rheumatologic: Rheumatoid arthritis Infectious disease: No pertinent hx ENT: No pertinent hx Renal/: Chronic renal insuff Endocrine: No pertinent hx Dermatology: No pertinent hx PAST SURGICAL HISTORY Pacemaker, Cholecystectomy, Colon Resection FAMILY HISTORY Heart Disease SOCIAL HISTORY Smoke: No ALCOHOL: none Drugs: None Lives: Alone ALLERGY: NKDA MEDICATIONS: Refer to [facility] REVIEW OF SYSTEMS: Refer to PMH and PSH. PHYSICAL EXAMINATION: General appearance is in no acute distress. HEENT: Normocephalic and nontraumatic. Eyes, nose, ears, and throat are unremarkable. Neck is supple. No lymphadenopathy. No crepitus. Cardiovascular: S1, S2, regular rate and rhythm. SM 4/6. Pulmonary: Clear to auscultation bilaterally. Abdomen: Bowel sounds are positive. Abdomen is soft, nontender, and nondistended. Extremities: No rash, lesions, or edema. No restriction of range of motion NEUROLOGICAL EXAMINATION: Awake. Oriented to time, place and person. PERRL. EOMI. CN: no focal findings. Muscle tone: within normal. Muscle strength: 5 DTR: 2 Plantar reflex: Flexor response bilaterally Gait: not examined in bed. Sensory exam: no abnormal findings. No cerebellar signs elicited. F-T-N test accurate. Current Medications Current Medications Current Medications Diphtheria/ Tetanus/Acell Pertussis (Boostrix) 0.5 ml ONCE ONCE VAX IM Last administered on 01/05/19at 16:27; Start 01/05/19 at 15:45; Stop 01/05/19 at 16:00 ; Status DC Ondansetron HCl (Zofran) 4 mg PRN Q8HRS PRN IV NAUSEA/VOMITING; Start 01/05/19 at 18:00; Stop 01/06/19 at 17:59 Morphine Sulfate (Morphine Sulfate) 2 mg PRN Q2HR PRN IV PAIN; Start 01/05/19 at 18:00; Stop 01/06/19 at 17:59 Acetaminophen (Tylenol) 650 mg PRN Q4HRS PRN PO FEVER Last administered on 01/05at 21:11; Start 01/05/19 at 18:00; Stop 01/06/19 at 17:59 Nitroglycerin (Nitrostat) 0.4 mg PRN Q5MIN PRN SL CHEST PAIN; Start 01/05/19 at 18:00; Stop 01/06/19 at 17:59 Lisinopril (Prinivil) 10 mg DAILY PO Last administered on 01/06/19at 08:09; Start 01/05/19 at 21:30; Stop 01/06/19 at 16:55; Status DC Lisinopril (Prinivil) 5 mg DAILY PO ; Start 01/07/19 at 09:00 Carvedilol (Coreg) 12.5 mg BIDWMEALS PO ; Start 01/06/19 at 17:30 Aspirin (Ecotrin) 81 mg DAILYWBKFT PO ; Start 01/06/19 at 17:30 Active Scripts Active Reported Hydrochlorothiazide Capsule (Hydrochlorothiazide) 12.5 Mg Capsule 25 Mg PO DAILY Lansoprazole 30 Mg Capsule.dr 1 Cap PO DAILY Carvedilol 25 Mg Tablet 25 Mg PO BIDWMEALS Albuterol Sulfate Conc Neb Soln (Albuterol Sulfate) 2.5 Mg/0.5 Ml Vial.neb 1 Vial NEB Q6HRS Allergies Allergies: Allergies Coded Allergies Type Severity Reaction Last Updated Verified No Known Drug Allergies 01/05/19 No ROS Review of System The patient denies any associated fevers, chills, headache, ear pain, rhinorrhea , sore throat, stiff neck, productive cough, chest pain, shortness of breath, back or flank pain, abdominal pain, nausea, vomiting, diarrhea, constipation, dysuria, rash, numbness, weakness, tingling, incontinence, difficulty ambulating, or diaphoresis. Physical Exam Physical Exam General: Well developed, well nourished, no acute distress, well appearing HEENT: Pupils equally round and reactive to light, EOMI, no discharge, normal conjunctiva Neck: Supple, no nuchal rigidity, no JVD, trachea midline, no tenderness Cardiac: RRR, no murmurs, no gallops, no rubs Chest/Lungs: CTAB, no wheeze, no rhonchi, no crackles Abdomen: soft, non-distended, no guarding, no peritoneal signs, non-tender Back: No tenderness Extremities: no edema, pulses intact, non-tender,capillary refill <3 sec bilateral upper and lower extremities, Neuro: Alert and oriented x 4, no focal deficits, normal speech Vitals Vitals: Vital Signs Date Time Temp Pulse Resp B/P (MAP) Pulse Ox O2 Delivery O2 Flow Rate FiO2 01/06/19 15:00 98.6 69 156/90 (112) 98 Room Air 98.6 01/06/19 11:51 16 Labs Labs Laboratory Tests Test 01/05/19 15:40 01/05/19 16:30 01/05/19 20:50 01/05/19 23:50 White Blood Count 5.7 x10^3/uL (4.0-11.0) Red Blood Count 4.10 x10^6/uL (3.50-5.40) Hemoglobin 11.9 g/dL (12.0-15.5) Hematocrit 36.4 % (36.0-47.0) Mean Corpuscular Volume 89 fL (79-100) Mean Corpuscular Hemoglobin 29 pg (25-35) Mean Corpuscular Hemoglobin Concent 33 g/dL (31-37) Red Cell Distribution Width 16.4 % (11.5-14.5) Platelet Count 151 x10^3/uL (140-400) Neutrophils (%) (Auto) 66 % (31-73) Lymphocytes (%) (Auto) 22 % (24-48) Monocytes (%) (Auto) 5 % (0-9) Eosinophils (%) (Auto) 5 % (0-3) Basophils (%) (Auto) 1 % (0-3) Neutrophils # (Auto) 3.8 x10^3uL (1.8-7.7) Lymphocytes # (Auto) 1.3 x10^3/uL (1.0-4.8) Monocytes # (Auto) 0.3 x10^3/uL (0.0-1.1) Eosinophils # (Auto) 0.3 x10^3/uL (0.0-0.7) Basophils # (Auto) 0.1 x10^3/uL (0.0-0.2) Prothrombin Time 15.3 SEC (11.7-14.0) Prothromb Time International Ratio 1.2 (0.8-1.1) Sodium Level 143 mmol/L (136-145) Potassium Level 3.8 mmol/L (3.5-5.1) Chloride Level 105 mmol/L (98-107) Carbon Dioxide Level 29 mmol/L (21-32) Anion Gap 9 (6-14) Blood Urea Nitrogen 27 mg/dL (7-20) Creatinine 1.4 mg/dL (0.6-1.0) Estimated GFR (Cockcroft-Gault) 35.8 BUN/Creatinine Ratio 19 (6-20) Glucose Level 123 mg/dL (70-99) Calcium Level 8.5 mg/dL (8.5-10.1) Magnesium Level 2.0 mg/dL (1.8-2.4) Total Bilirubin 0.4 mg/dL (0.2-1.0) Aspartate Amino Transf (AST/SGOT) 23 U/L (15-37) Alanine Aminotransferase (ALT/SGPT) 18 U/L (14-59) Alkaline Phosphatase 59 U/L (46-116) Troponin I Quantitative < 0.017 ng/mL (0.000-0.055) < 0.017 ng/mL (0.000-0.055) < 0.017 ng/mL (0.000-0.055) FT-Jba-P-Type Natriuretic Peptide 2187 pg/mL (0-449) Total Protein 7.1 g/dL (6.4-8.2) Albumin 3.0 g/dL (3.4-5.0) Albumin/Globulin Ratio 0.7 (1.0-1.7) Ammonia < 10 mcmol/L (11-34) Test 01/06/19 00:00 01/06/19 03:45 Nasal Screen MRSA (PCR) Negative (Negative) White Blood Count 7.0 x10^3/uL (4.0-11.0) Red Blood Count 4.04 x10^6/uL (3.50-5.40) Hemoglobin 11.6 g/dL (12.0-15.5) Hematocrit 35.8 % (36.0-47.0) Mean Corpuscular Volume 89 fL (79-100) Mean Corpuscular Hemoglobin 29 pg (25-35) Mean Corpuscular Hemoglobin Concent 32 g/dL (31-37) Red Cell Distribution Width 16.8 % (11.5-14.5) Platelet Count 151 x10^3/uL (140-400) Neutrophils (%) (Auto) 69 % (31-73) Lymphocytes (%) (Auto) 18 % (24-48) Monocytes (%) (Auto) 7 % (0-9) Eosinophils (%) (Auto) 4 % (0-3) Basophils (%) (Auto) 1 % (0-3) Neutrophils # (Auto) 4.8 x10^3uL (1.8-7.7) Lymphocytes # (Auto) 1.3 x10^3/uL (1.0-4.8) Monocytes # (Auto) 0.5 x10^3/uL (0.0-1.1) Eosinophils # (Auto) 0.3 x10^3/uL (0.0-0.7) Basophils # (Auto) 0.1 x10^3/uL (0.0-0.2) Sodium Level 142 mmol/L (136-145) Potassium Level 4.2 mmol/L (3.5-5.1) Chloride Level 104 mmol/L (98-107) Carbon Dioxide Level 32 mmol/L (21-32) Anion Gap 6 (6-14) Blood Urea Nitrogen 26 mg/dL (7-20) Creatinine 1.1 mg/dL (0.6-1.0) Estimated GFR (Cockcroft-Gault) 47.3 BUN/Creatinine Ratio 24 (6-20) Glucose Level 89 mg/dL (70-99) Calcium Level 8.6 mg/dL (8.5-10.1) Total Bilirubin 0.5 mg/dL (0.2-1.0) Aspartate Amino Transf (AST/SGOT) 26 U/L (15-37) Alanine Aminotransferase (ALT/SGPT) 17 U/L (14-59) Alkaline Phosphatase 57 U/L (46-116) Creatine Kinase 63 U/L (26-192) Total Protein 7.0 g/dL (6.4-8.2) Albumin 2.9 g/dL (3.4-5.0) Albumin/Globulin Ratio 0.7 (1.0-1.7) Triglycerides Level 124 mg/dL (0-150) Cholesterol Level 179 mg/dL (0-200) LDL Cholesterol, Calculated 117 mg/dL (0-100) VLDL Cholesterol, Calculated 25 mg/dL (0-40) Non-HDL Cholesterol Calculated 142 mg/dL (0-129) HDL Cholesterol 37 mg/dL (40-60) Cholesterol/HDL Ratio 4.8 Vitamin B12 Level 345 pg/mL (247-911) Thyroid Stimulating Hormone (TSH) 1.888 uIU/mL (0.358-3.74) Laboratory Tests Test 01/05/19 20:50 01/05/19 23:50 01/06/19 00:00 01/06/19 03:45 Troponin I Quantitative < 0.017 ng/mL (0.000-0.055) < 0.017 ng/mL (0.000-0.055) Nasal Screen MRSA (PCR) Negative (Negative) White Blood Count 7.0 x10^3/uL (4.0-11.0) Red Blood Count 4.04 x10^6/uL (3.50-5.40) Hemoglobin 11.6 g/dL (12.0-15.5) Hematocrit 35.8 % (36.0-47.0) Mean Corpuscular Volume 89 fL (79-100) Mean Corpuscular Hemoglobin 29 pg (25-35) Mean Corpuscular Hemoglobin Concent 32 g/dL (31-37) Red Cell Distribution Width 16.8 % (11.5-14.5) Platelet Count 151 x10^3/uL (140-400) Neutrophils (%) (Auto) 69 % (31-73) Lymphocytes (%) (Auto) 18 % (24-48) Monocytes (%) (Auto) 7 % (0-9) Eosinophils (%) (Auto) 4 % (0-3) Basophils (%) (Auto) 1 % (0-3) Neutrophils # (Auto) 4.8 x10^3uL (1.8-7.7) Lymphocytes # (Auto) 1.3 x10^3/uL (1.0-4.8) Monocytes # (Auto) 0.5 x10^3/uL (0.0-1.1) Eosinophils # (Auto) 0.3 x10^3/uL (0.0-0.7) Basophils # (Auto) 0.1 x10^3/uL (0.0-0.2) Sodium Level 142 mmol/L (136-145) Potassium Level 4.2 mmol/L (3.5-5.1) Chloride Level 104 mmol/L (98-107) Carbon Dioxide Level 32 mmol/L (21-32) Anion Gap 6 (6-14) Blood Urea Nitrogen 26 mg/dL (7-20) Creatinine 1.1 mg/dL (0.6-1.0) Estimated GFR (Cockcroft-Gault) 47.3 BUN/Creatinine Ratio 24 (6-20) Glucose Level 89 mg/dL (70-99) Calcium Level 8.6 mg/dL (8.5-10.1) Total Bilirubin 0.5 mg/dL (0.2-1.0) Aspartate Amino Transf (AST/SGOT) 26 U/L (15-37) Alanine Aminotransferase (ALT/SGPT) 17 U/L (14-59) Alkaline Phosphatase 57 U/L (46-116) Creatine Kinase 63 U/L (26-192) Total Protein 7.0 g/dL (6.4-8.2) Albumin 2.9 g/dL (3.4-5.0) Albumin/Globulin Ratio 0.7 (1.0-1.7) Triglycerides Level 124 mg/dL (0-150) Cholesterol Level 179 mg/dL (0-200) LDL Cholesterol, Calculated 117 mg/dL (0-100) VLDL Cholesterol, Calculated 25 mg/dL (0-40) Non-HDL Cholesterol Calculated 142 mg/dL (0-129) HDL Cholesterol 37 mg/dL (40-60) Cholesterol/HDL Ratio 4.8 Vitamin B12 Level 345 pg/mL (247-911) Thyroid Stimulating Hormone (TSH) 1.888 uIU/mL (0.358-3.74) KYM JEFFERSON MD Jan 06, 2019 17:42
[2019-01-06] MEDS: ASPIRIN ENTERIC COATED 81 MG TABLET.DR. PO SCH (17:54)
[2019-01-06] MEDS: CARVEDILOL 12.5 MG TABLET. PO SCH (17:55)
[2019-01-07] VITALS (8 sets, daily range): BP systolic 83–153; BP diastolic 57–99
[2019-01-07 05:02] LABS: BASO % 1 % (0-3); EOS # 0.4 x10^3/uL (0.0-0.7); EOS % 5 % (0-3); HEMATOCRIT 37.5 % (36.0-47.0); HEMOGLOBIN 12.1 g/dL (12.0-15.5); LYMPH # 1.2 x10^3/uL (1.0-4.8); LYMPH % 15 % (24-48); MEAN CORPUSCULAR HEMOGLOBIN 28 pg (25-35); MEAN CORPUSCULAR HGB CONC 32 g/dL (31-37); MEAN CORPUSCULAR VOLUME 88 fL (79-100); MONO # 0.5 x10^3/uL (0.0-1.1); MONO % 6 % (0-9); NEUT # 6.2 x10^3uL (1.8-7.7); NEUT % 74 % (31-73); PLATELET COUNT 156 x10^3/uL (140-400); RED BLOOD COUNT 4.27 x10^6/uL (3.50-5.40); RED CELL DISTRIBUTION WIDTH 16.5 % (11.5-14.5); WHITE BLOOD COUNT 8.4 x10^3/uL (4.0-11.0)
[2019-01-07 05:26] LABS: ALBUMIN/GLOBULIN RATIO 0.7 (1.0-1.7); CALCIUM 8.8 mg/dL (8.5-10.1); CREATININE 1.2 mg/dL (0.6-1.0); GFR 42.8; POTASSIUM 3.9 mmol/L (3.5-5.1); TOTAL BILIRUBIN 0.5 mg/dL (0.2-1.0); TOTAL PROTEIN 7.3 g/dL (6.4-8.2)
[2019-01-07] MEDS: CARVEDILOL 12.5 MG TABLET. PO SCH ×2 (08:56→16:22)
[2019-01-07] MEDS: ASPIRIN ENTERIC COATED 81 MG TABLET.DR. PO SCH (08:56)
[2019-01-07] MEDS ORDERED: LISINOPRIL 5 MG TABLET. PO SCH (09:00)
--- NOTE | 2019-01-07 11:08 | PDOC ---
PROGRESS NOTES History of Present Illness History of Present Illness ASSESSMENT AND PLAN: Fall with laceration, She struck the back of her head when hitting the ground. Denies any chest pain. Has a previous history of syncopal episodes reports she was walking to the garage with her daughter and passed out. Fell to the concrete floor and hit the back of her head, suffering laceration. Patient denies any precipitating symptoms or warnings prior to fall although she reports feeling dizzy intermittently acute on chronic renal failure, mild malnutrition, anemia. The ascending aorta is moderately dilated at 4.0 cm Calculated aortic valve area is 1.0 cm2 with maximum pressure gradient of 22 mmHg and mean pressure gradient of 14 mmHg. Doppler and color-flow analysis revealed mild aortic stenosis, visually the valve appears at least moderately stenotic. pacemaker lead in the right ventricle. 01/07 HIGH RISK FOR REPEAT EPISODES CHK ORTHOSTATIC BP/ PT/OT CVC. monitoring EEG.01/07 WNL consult Cardiology and Neurology. echocardiogram evaluate the morphology of aneurysm. Consult Nephrology. Deep vein thrombosis prophylaxis. full code, . 36 min cc time Vitals Vitals Vital Signs Date Time Temp Pulse Resp B/P (MAP) Pulse Ox O2 Delivery O2 Flow Rate FiO2 01/07/19 08:56 82 153/99 01/07/19 08:00 Room Air 01/07/19 07:00 97.6 18 96 97.6 Physical Exam General: Alert, Oriented X3, Cooperative, No acute distress Heart: Regular rate, Other (IRREGULAR, PPM GR 3 6 ANDRES LSB) Lungs: Clear Abdomen: Normal bowel sounds, Soft, No tenderness Extremities: No edema, Normal pulses Skin: No breakdown, No significant lesion Labs LABS Laboratory Tests Test 01/07/19 04:35 White Blood Count 8.4 x10^3/uL (4.0-11.0) Red Blood Count 4.27 x10^6/uL (3.50-5.40) Hemoglobin 12.1 g/dL (12.0-15.5) Hematocrit 37.5 % (36.0-47.0) Mean Corpuscular Volume 88 fL (79-100) Mean Corpuscular Hemoglobin 28 pg (25-35) Mean Corpuscular Hemoglobin Concent 32 g/dL (31-37) Red Cell Distribution Width 16.5 % (11.5-14.5) Platelet Count 156 x10^3/uL (140-400) Neutrophils (%) (Auto) 74 % (31-73) Lymphocytes (%) (Auto) 15 % (24-48) Monocytes (%) (Auto) 6 % (0-9) Eosinophils (%) (Auto) 5 % (0-3) Basophils (%) (Auto) 1 % (0-3) Neutrophils # (Auto) 6.2 x10^3uL (1.8-7.7) Lymphocytes # (Auto) 1.2 x10^3/uL (1.0-4.8) Monocytes # (Auto) 0.5 x10^3/uL (0.0-1.1) Eosinophils # (Auto) 0.4 x10^3/uL (0.0-0.7) Basophils # (Auto) 0.0 x10^3/uL (0.0-0.2) Sodium Level 143 mmol/L (136-145) Potassium Level 3.9 mmol/L (3.5-5.1) Chloride Level 105 mmol/L (98-107) Carbon Dioxide Level 30 mmol/L (21-32) Anion Gap 8 (6-14) Blood Urea Nitrogen 26 mg/dL (7-20) Creatinine 1.2 mg/dL (0.6-1.0) Estimated GFR (Cockcroft-Gault) 42.8 BUN/Creatinine Ratio 22 (6-20) Glucose Level 95 mg/dL (70-99) Calcium Level 8.8 mg/dL (8.5-10.1) Total Bilirubin 0.5 mg/dL (0.2-1.0) Aspartate Amino Transf (AST/SGOT) 21 U/L (15-37) Alanine Aminotransferase (ALT/SGPT) 16 U/L (14-59) Alkaline Phosphatase 63 U/L (46-116) Total Protein 7.3 g/dL (6.4-8.2) Albumin 3.0 g/dL (3.4-5.0) Albumin/Globulin Ratio 0.7 (1.0-1.7) Comment Review of Relevant I have reviewed the following items claudio (where applicable) has been applied. Labs Laboratory Tests Test 01/05/19 15:40 01/05/19 16:30 01/05/19 20:50 01/05/19 23:50 White Blood Count 5.7 x10^3/uL (4.0-11.0) Red Blood Count 4.10 x10^6/uL (3.50-5.40) Hemoglobin 11.9 g/dL (12.0-15.5) Hematocrit 36.4 % (36.0-47.0) Mean Corpuscular Volume 89 fL (79-100) Mean Corpuscular Hemoglobin 29 pg (25-35) Mean Corpuscular Hemoglobin Concent 33 g/dL (31-37) Red Cell Distribution Width 16.4 % (11.5-14.5) Platelet Count 151 x10^3/uL (140-400) Neutrophils (%) (Auto) 66 % (31-73) Lymphocytes (%) (Auto) 22 % (24-48) Monocytes (%) (Auto) 5 % (0-9) Eosinophils (%) (Auto) 5 % (0-3) Basophils (%) (Auto) 1 % (0-3) Neutrophils # (Auto) 3.8 x10^3uL (1.8-7.7) Lymphocytes # (Auto) 1.3 x10^3/uL (1.0-4.8) Monocytes # (Auto) 0.3 x10^3/uL (0.0-1.1) Eosinophils # (Auto) 0.3 x10^3/uL (0.0-0.7) Basophils # (Auto) 0.1 x10^3/uL (0.0-0.2) Prothrombin Time 15.3 SEC (11.7-14.0) Prothromb Time International Ratio 1.2 (0.8-1.1) Sodium Level 143 mmol/L (136-145) Potassium Level 3.8 mmol/L (3.5-5.1) Chloride Level 105 mmol/L (98-107) Carbon Dioxide Level 29 mmol/L (21-32) Anion Gap 9 (6-14) Blood Urea Nitrogen 27 mg/dL (7-20) Creatinine 1.4 mg/dL (0.6-1.0) Estimated GFR (Cockcroft-Gault) 35.8 BUN/Creatinine Ratio 19 (6-20) Glucose Level 123 mg/dL (70-99) Calcium Level 8.5 mg/dL (8.5-10.1) Magnesium Level 2.0 mg/dL (1.8-2.4) Total Bilirubin 0.4 mg/dL (0.2-1.0) Aspartate Amino Transf (AST/SGOT) 23 U/L (15-37) Alanine Aminotransferase (ALT/SGPT) 18 U/L (14-59) Alkaline Phosphatase 59 U/L (46-116) Troponin I Quantitative < 0.017 ng/mL (0.000-0.055) < 0.017 ng/mL (0.000-0.055) < 0.017 ng/mL (0.000-0.055) KU-Soc-Y-Type Natriuretic Peptide 2187 pg/mL (0-449) Total Protein 7.1 g/dL (6.4-8.2) Albumin 3.0 g/dL (3.4-5.0) Albumin/Globulin Ratio 0.7 (1.0-1.7) Ammonia < 10 mcmol/L (11-34) Test 01/06/19 00:00 01/06/19 03:45 01/07/19 04:35 Nasal Screen MRSA (PCR) Negative (Negative) White Blood Count 7.0 x10^3/uL (4.0-11.0) 8.4 x10^3/uL (4.0-11.0) Red Blood Count 4.04 x10^6/uL (3.50-5.40) 4.27 x10^6/uL (3.50-5.40) Hemoglobin 11.6 g/dL (12.0-15.5) 12.1 g/dL (12.0-15.5) Hematocrit 35.8 % (36.0-47.0) 37.5 % (36.0-47.0) Mean Corpuscular Volume 89 fL (79-100) 88 fL (79-100) Mean Corpuscular Hemoglobin 29 pg (25-35) 28 pg (25-35) Mean Corpuscular Hemoglobin Concent 32 g/dL (31-37) 32 g/dL (31-37) Red Cell Distribution Width 16.8 % (11.5-14.5) 16.5 % (11.5-14.5) Platelet Count 151 x10^3/uL (140-400) 156 x10^3/uL (140-400) Neutrophils (%) (Auto) 69 % (31-73) 74 % (31-73) Lymphocytes (%) (Auto) 18 % (24-48) 15 % (24-48) Monocytes (%) (Auto) 7 % (0-9) 6 % (0-9) Eosinophils (%) (Auto) 4 % (0-3) 5 % (0-3) Basophils (%) (Auto) 1 % (0-3) 1 % (0-3) Neutrophils # (Auto) 4.8 x10^3uL (1.8-7.7) 6.2 x10^3uL (1.8-7.7) Lymphocytes # (Auto) 1.3 x10^3/uL (1.0-4.8) 1.2 x10^3/uL (1.0-4.8) Monocytes # (Auto) 0.5 x10^3/uL (0.0-1.1) 0.5 x10^3/uL (0.0-1.1) Eosinophils # (Auto) 0.3 x10^3/uL (0.0-0.7) 0.4 x10^3/uL (0.0-0.7) Basophils # (Auto) 0.1 x10^3/uL (0.0-0.2) 0.0 x10^3/uL (0.0-0.2) Sodium Level 142 mmol/L (136-145) 143 mmol/L (136-145) Potassium Level 4.2 mmol/L (3.5-5.1) 3.9 mmol/L (3.5-5.1) Chloride Level 104 mmol/L (98-107) 105 mmol/L (98-107) Carbon Dioxide Level 32 mmol/L (21-32) 30 mmol/L (21-32) Anion Gap 6 (6-14) 8 (6-14) Blood Urea Nitrogen 26 mg/dL (7-20) 26 mg/dL (7-20) Creatinine 1.1 mg/dL (0.6-1.0) 1.2 mg/dL (0.6-1.0) Estimated GFR (Cockcroft-Gault) 47.3 42.8 BUN/Creatinine Ratio 24 (6-20) 22 (6-20) Glucose Level 89 mg/dL (70-99) 95 mg/dL (70-99) Calcium Level 8.6 mg/dL (8.5-10.1) 8.8 mg/dL (8.5-10.1) Total Bilirubin 0.5 mg/dL (0.2-1.0) 0.5 mg/dL (0.2-1.0) Aspartate Amino Transf (AST/SGOT) 26 U/L (15-37) 21 U/L (15-37) Alanine Aminotransferase (ALT/SGPT) 17 U/L (14-59) 16 U/L (14-59) Alkaline Phosphatase 57 U/L (46-116) 63 U/L (46-116) Creatine Kinase 63 U/L (26-192) Total Protein 7.0 g/dL (6.4-8.2) 7.3 g/dL (6.4-8.2) Albumin 2.9 g/dL (3.4-5.0) 3.0 g/dL (3.4-5.0) Albumin/Globulin Ratio 0.7 (1.0-1.7) 0.7 (1.0-1.7) Triglycerides Level 124 mg/dL (0-150) Cholesterol Level 179 mg/dL (0-200) LDL Cholesterol, Calculated 117 mg/dL (0-100) VLDL Cholesterol, Calculated 25 mg/dL (0-40) Non-HDL Cholesterol Calculated 142 mg/dL (0-129) HDL Cholesterol 37 mg/dL (40-60) Cholesterol/HDL Ratio 4.8 Vitamin B12 Level 345 pg/mL (247-911) Thyroid Stimulating Hormone (TSH) 1.888 uIU/mL (0.358-3.74) Laboratory Tests Test 01/07/19 04:35 White Blood Count 8.4 x10^3/uL (4.0-11.0) Red Blood Count 4.27 x10^6/uL (3.50-5.40) Hemoglobin 12.1 g/dL (12.0-15.5) Hematocrit 37.5 % (36.0-47.0) Mean Corpuscular Volume 88 fL (79-100) Mean Corpuscular Hemoglobin 28 pg (25-35) Mean Corpuscular Hemoglobin Concent 32 g/dL (31-37) Red Cell Distribution Width 16.5 % (11.5-14.5) Platelet Count 156 x10^3/uL (140-400) Neutrophils (%) (Auto) 74 % (31-73) Lymphocytes (%) (Auto) 15 % (24-48) Monocytes (%) (Auto) 6 % (0-9) Eosinophils (%) (Auto) 5 % (0-3) Basophils (%) (Auto) 1 % (0-3) Neutrophils # (Auto) 6.2 x10^3uL (1.8-7.7) Lymphocytes # (Auto) 1.2 x10^3/uL (1.0-4.8) Monocytes # (Auto) 0.5 x10^3/uL (0.0-1.1) Eosinophils # (Auto) 0.4 x10^3/uL (0.0-0.7) Basophils # (Auto) 0.0 x10^3/uL (0.0-0.2) Sodium Level 143 mmol/L (136-145) Potassium Level 3.9 mmol/L (3.5-5.1) Chloride Level 105 mmol/L (98-107) Carbon Dioxide Level 30 mmol/L (21-32) Anion Gap 8 (6-14) Blood Urea Nitrogen 26 mg/dL (7-20) Creatinine 1.2 mg/dL (0.6-1.0) Estimated GFR (Cockcroft-Gault) 42.8 BUN/Creatinine Ratio 22 (6-20) Glucose Level 95 mg/dL (70-99) Calcium Level 8.8 mg/dL (8.5-10.1) Total Bilirubin 0.5 mg/dL (0.2-1.0) Aspartate Amino Transf (AST/SGOT) 21 U/L (15-37) Alanine Aminotransferase (ALT/SGPT) 16 U/L (14-59) Alkaline Phosphatase 63 U/L (46-116) Total Protein 7.3 g/dL (6.4-8.2) Albumin 3.0 g/dL (3.4-5.0) Albumin/Globulin Ratio 0.7 (1.0-1.7) Medications Current Medications Diphtheria/ Tetanus/Acell Pertussis (Boostrix) 0.5 ml ONCE ONCE VAX IM Last administered on 3/10/19at 16:27; Start 01/05/19 at 15:45; Stop 01/05/19 at 16:00 ; Status DC Ondansetron HCl (Zofran) 4 mg PRN Q8HRS PRN IV NAUSEA/VOMITING; Start 01/05/19 at 18:00; Stop 01/06/19 at 17:59; Status DC Morphine Sulfate (Morphine Sulfate) 2 mg PRN Q2HR PRN IV PAIN; Start 01/05/19 at 18:00; Stop 01/06/19 at 17:59; Status DC Acetaminophen (Tylenol) 650 mg PRN Q4HRS PRN PO FEVER Last administered on 01/05at 21:11; Start 01/05/19 at 18:00; Stop 01/06/19 at 17:59; Status DC Nitroglycerin (Nitrostat) 0.4 mg PRN Q5MIN PRN SL CHEST PAIN; Start 01/05/19 at 18:00; Stop 01/06/19 at 17:59; Status DC Lisinopril (Prinivil) 10 mg DAILY PO Last administered on 01/06/19at 08:09; Start 01/05/19 at 21:30; Stop 01/06/19 at 16:55; Status DC Lisinopril (Prinivil) 5 mg DAILY PO Last administered on 01/07/19at 08:56; Start 01/07/19 at 09:00 Carvedilol (Coreg) 12.5 mg BIDWMEALS PO Last administered on 01/07/19at 08:56; Start 01/06/19 at 17:30 Aspirin (Ecotrin) 81 mg [id number] PO Last administered on 01/07/19at 08:56; Start 01/06/19 at 17:30 Active Scripts Active Reported Hydrochlorothiazide Capsule (Hydrochlorothiazide) 12.5 Mg Capsule 25 Mg PO DAILY Lansoprazole 30 Mg Capsule. 1 Cap PO DAILY Carvedilol 25 Mg Tablet 25 Mg PO BIDWMEALS Albuterol Sulfate Conc Neb Soln (Albuterol Sulfate) 2.5 Mg/0.5 Ml Vial.neb 1 Vial NEB Q6HRS Vitals/I & O Vital Sign - Last 24 Hours 01/06/19 01/06/19 01/06/19 01/06/19 11:51 15:00 17:55 19:00 Temp 98.6 98.6 98.5 98.6 98.6 98.5 Pulse 103 69 69 84 Resp 16 B/P (MAP) 155/90 (111) 156/90 (112) 156/90 110/75 (87) Pulse Ox 98 98 94 O2 Delivery Room Air Room Air Room Air 01/06/19 01/06/19 01/07/19 01/07/19 20:00 23:00 03:00 07:00 Temp 97.9 98.2 97.6 97.9 98.2 97.6 Pulse 78 67 82 Resp 18 B/P (MAP) 137/87 (104) 130/81 (97) 153/99 (117) Pulse Ox 98 94 96 O2 Delivery Room Air Room Air Room Air Room Air 01/07/19 01/07/19 01/07/19 08:00 08:56 08:56 Pulse 82 82 B/P (MAP) 153/99 153/99 O2 Delivery Room Air Intake and Output 01/06/19 01/06/19 01/07/19 15:00 23:00 07:00 Intake Total 20 ml 50 ml 0 ml Output Total 450 ml Balance -430 ml 50 ml 0 ml NORRIS ARORA MD Jan 07, 2019 11:08
--- NOTE | 2019-01-07 11:49 | PDOC ---
PULMONARY PROGRESS NOTES Subjective no soa Vitals Vital Signs Date Time Temp Pulse Resp B/P (MAP) Pulse Ox O2 Delivery O2 Flow Rate FiO2 01/07/19 08:56 82 153/99 01/07/19 08:00 Room Air 01/07/19 07:00 97.6 18 96 97.6 General: Alert, No acute distress Lungs: Clear Cardiovascular: S1 Abdomen: Soft Neuro Exam: Alert Extremities: No Edema Skin: Warm Labs Laboratory Tests Test 01/05/19 15:40 01/05/19 16:30 01/05/19 20:50 01/05/19 23:50 White Blood Count 5.7 x10^3/uL (4.0-11.0) Red Blood Count 4.10 x10^6/uL (3.50-5.40) Hemoglobin 11.9 g/dL (12.0-15.5) Hematocrit 36.4 % (36.0-47.0) Mean Corpuscular Volume 89 fL (79-100) Mean Corpuscular Hemoglobin 29 pg (25-35) Mean Corpuscular Hemoglobin Concent 33 g/dL (31-37) Red Cell Distribution Width 16.4 % (11.5-14.5) Platelet Count 151 x10^3/uL (140-400) Neutrophils (%) (Auto) 66 % (31-73) Lymphocytes (%) (Auto) 22 % (24-48) Monocytes (%) (Auto) 5 % (0-9) Eosinophils (%) (Auto) 5 % (0-3) Basophils (%) (Auto) 1 % (0-3) Neutrophils # (Auto) 3.8 x10^3uL (1.8-7.7) Lymphocytes # (Auto) 1.3 x10^3/uL (1.0-4.8) Monocytes # (Auto) 0.3 x10^3/uL (0.0-1.1) Eosinophils # (Auto) 0.3 x10^3/uL (0.0-0.7) Basophils # (Auto) 0.1 x10^3/uL (0.0-0.2) Prothrombin Time 15.3 SEC (11.7-14.0) Prothromb Time International Ratio 1.2 (0.8-1.1) Sodium Level 143 mmol/L (136-145) Potassium Level 3.8 mmol/L (3.5-5.1) Chloride Level 105 mmol/L (98-107) Carbon Dioxide Level 29 mmol/L (21-32) Anion Gap 9 (6-14) Blood Urea Nitrogen 27 mg/dL (7-20) Creatinine 1.4 mg/dL (0.6-1.0) Estimated GFR (Cockcroft-Gault) 35.8 BUN/Creatinine Ratio 19 (6-20) Glucose Level 123 mg/dL (70-99) Calcium Level 8.5 mg/dL (8.5-10.1) Magnesium Level 2.0 mg/dL (1.8-2.4) Total Bilirubin 0.4 mg/dL (0.2-1.0) Aspartate Amino Transf (AST/SGOT) 23 U/L (15-37) Alanine Aminotransferase (ALT/SGPT) 18 U/L (14-59) Alkaline Phosphatase 59 U/L (46-116) Troponin I Quantitative < 0.017 ng/mL (0.000-0.055) < 0.017 ng/mL (0.000-0.055) < 0.017 ng/mL (0.000-0.055) YG-Xio-V-Type Natriuretic Peptide 2187 pg/mL (0-449) Total Protein 7.1 g/dL (6.4-8.2) Albumin 3.0 g/dL (3.4-5.0) Albumin/Globulin Ratio 0.7 (1.0-1.7) Ammonia < 10 mcmol/L (11-34) Test 01/06/19 00:00 01/06/19 03:45 01/07/19 04:35 Nasal Screen MRSA (PCR) Negative (Negative) White Blood Count 7.0 x10^3/uL (4.0-11.0) 8.4 x10^3/uL (4.0-11.0) Red Blood Count 4.04 x10^6/uL (3.50-5.40) 4.27 x10^6/uL (3.50-5.40) Hemoglobin 11.6 g/dL (12.0-15.5) 12.1 g/dL (12.0-15.5) Hematocrit 35.8 % (36.0-47.0) 37.5 % (36.0-47.0) Mean Corpuscular Volume 89 fL (79-100) 88 fL (79-100) Mean Corpuscular Hemoglobin 29 pg (25-35) 28 pg (25-35) Mean Corpuscular Hemoglobin Concent 32 g/dL (31-37) 32 g/dL (31-37) Red Cell Distribution Width 16.8 % (11.5-14.5) 16.5 % (11.5-14.5) Platelet Count 151 x10^3/uL (140-400) 156 x10^3/uL (140-400) Neutrophils (%) (Auto) 69 % (31-73) 74 % (31-73) Lymphocytes (%) (Auto) 18 % (24-48) 15 % (24-48) Monocytes (%) (Auto) 7 % (0-9) 6 % (0-9) Eosinophils (%) (Auto) 4 % (0-3) 5 % (0-3) Basophils (%) (Auto) 1 % (0-3) 1 % (0-3) Neutrophils # (Auto) 4.8 x10^3uL (1.8-7.7) 6.2 x10^3uL (1.8-7.7) Lymphocytes # (Auto) 1.3 x10^3/uL (1.0-4.8) 1.2 x10^3/uL (1.0-4.8) Monocytes # (Auto) 0.5 x10^3/uL (0.0-1.1) 0.5 x10^3/uL (0.0-1.1) Eosinophils # (Auto) 0.3 x10^3/uL (0.0-0.7) 0.4 x10^3/uL (0.0-0.7) Basophils # (Auto) 0.1 x10^3/uL (0.0-0.2) 0.0 x10^3/uL (0.0-0.2) Sodium Level 142 mmol/L (136-145) 143 mmol/L (136-145) Potassium Level 4.2 mmol/L (3.5-5.1) 3.9 mmol/L (3.5-5.1) Chloride Level 104 mmol/L (98-107) 105 mmol/L (98-107) Carbon Dioxide Level 32 mmol/L (21-32) 30 mmol/L (21-32) Anion Gap 6 (6-14) 8 (6-14) Blood Urea Nitrogen 26 mg/dL (7-20) 26 mg/dL (7-20) Creatinine 1.1 mg/dL (0.6-1.0) 1.2 mg/dL (0.6-1.0) Estimated GFR (Cockcroft-Gault) 47.3 42.8 BUN/Creatinine Ratio 24 (6-20) 22 (6-20) Glucose Level 89 mg/dL (70-99) 95 mg/dL (70-99) Calcium Level 8.6 mg/dL (8.5-10.1) 8.8 mg/dL (8.5-10.1) Total Bilirubin 0.5 mg/dL (0.2-1.0) 0.5 mg/dL (0.2-1.0) Aspartate Amino Transf (AST/SGOT) 26 U/L (15-37) 21 U/L (15-37) Alanine Aminotransferase (ALT/SGPT) 17 U/L (14-59) 16 U/L (14-59) Alkaline Phosphatase 57 U/L (46-116) 63 U/L (46-116) Creatine Kinase 63 U/L (26-192) Total Protein 7.0 g/dL (6.4-8.2) 7.3 g/dL (6.4-8.2) Albumin 2.9 g/dL (3.4-5.0) 3.0 g/dL (3.4-5.0) Albumin/Globulin Ratio 0.7 (1.0-1.7) 0.7 (1.0-1.7) Triglycerides Level 124 mg/dL (0-150) Cholesterol Level 179 mg/dL (0-200) LDL Cholesterol, Calculated 117 mg/dL (0-100) VLDL Cholesterol, Calculated 25 mg/dL (0-40) Non-HDL Cholesterol Calculated 142 mg/dL (0-129) HDL Cholesterol 37 mg/dL (40-60) Cholesterol/HDL Ratio 4.8 Vitamin B12 Level 345 pg/mL (247-911) Thyroid Stimulating Hormone (TSH) 1.888 uIU/mL (0.358-3.74) Laboratory Tests Test 01/07/19 04:35 White Blood Count 8.4 x10^3/uL (4.0-11.0) Red Blood Count 4.27 x10^6/uL (3.50-5.40) Hemoglobin 12.1 g/dL (12.0-15.5) Hematocrit 37.5 % (36.0-47.0) Mean Corpuscular Volume 88 fL (79-100) Mean Corpuscular Hemoglobin 28 pg (25-35) Mean Corpuscular Hemoglobin Concent 32 g/dL (31-37) Red Cell Distribution Width 16.5 % (11.5-14.5) Platelet Count 156 x10^3/uL (140-400) Neutrophils (%) (Auto) 74 % (31-73) Lymphocytes (%) (Auto) 15 % (24-48) Monocytes (%) (Auto) 6 % (0-9) Eosinophils (%) (Auto) 5 % (0-3) Basophils (%) (Auto) 1 % (0-3) Neutrophils # (Auto) 6.2 x10^3uL (1.8-7.7) Lymphocytes # (Auto) 1.2 x10^3/uL (1.0-4.8) Monocytes # (Auto) 0.5 x10^3/uL (0.0-1.1) Eosinophils # (Auto) 0.4 x10^3/uL (0.0-0.7) Basophils # (Auto) 0.0 x10^3/uL (0.0-0.2) Sodium Level 143 mmol/L (136-145) Potassium Level 3.9 mmol/L (3.5-5.1) Chloride Level 105 mmol/L (98-107) Carbon Dioxide Level 30 mmol/L (21-32) Anion Gap 8 (6-14) Blood Urea Nitrogen 26 mg/dL (7-20) Creatinine 1.2 mg/dL (0.6-1.0) Estimated GFR (Cockcroft-Gault) 42.8 BUN/Creatinine Ratio 22 (6-20) Glucose Level 95 mg/dL (70-99) Calcium Level 8.8 mg/dL (8.5-10.1) Total Bilirubin 0.5 mg/dL (0.2-1.0) Aspartate Amino Transf (AST/SGOT) 21 U/L (15-37) Alanine Aminotransferase (ALT/SGPT) 16 U/L (14-59) Alkaline Phosphatase 63 U/L (46-116) Total Protein 7.3 g/dL (6.4-8.2) Albumin 3.0 g/dL (3.4-5.0) Albumin/Globulin Ratio 0.7 (1.0-1.7) Medications Active Scripts Medications Dose Route/Sig Max Daily Dose Days Date Category Hydrochlorothiazide Capsule (Hydrochlorothiazide) 12.5 Mg Capsule 25 Mg PO DAILY 01/06/19 Reported Lansoprazole 30 Mg Capsule.dr 1 Cap PO DAILY 01/06/19 Reported Carvedilol 25 Mg Tablet 25 Mg PO BIDWMEALS 01/06/19 Reported Albuterol Sulfate Conc Neb Soln (Albuterol Sulfate) 2.5 Mg/0.5 Ml Vial.neb 1 Vial NEB Q6HRS 01/06/19 Reported Impression . 1. Syncopal episodes, likely cardiac etiology. 2. The patient with history of valvular heart disease and history of aortic arch aneurysm. Being followed at [facility]. Echo reviewed. mild 3. Abnormal chest x-ray with likely mild congestive heart failure. However, this was a poor inspiratory film. She lacks any symptoms of pneumonia. 4. No significant history of tobacco use. Plan . RECOMMENDATIONS: 1. The patient is clinically asymptomatic from a pulmonary standpoint and on room air. 2. Cardiology recommendation. 3. Follow up chest x-ray prn 4. We will leave up to Cardiology regarding discharge plans. 5. Discussed with the patient's daughter and RN. will sign off REINIER SHEETS MD Jan 07, 2019 11:49
--- NOTE | 2019-01-07 13:31 | PDOC ---
CARDIO Progress Notes Date and Time Date of Service 01/07/19 Time of Evaluation 1310 Subjective Subjective: No Chest Pain, No shortness of breath, No Palpitations Vitals Vitals Vital Signs Date Time Temp Pulse Resp B/P (MAP) Pulse Ox O2 Delivery O2 Flow Rate FiO2 01/07/19 11:00 97.9 67 16 122/87 (99) 98 Room Air 97.9 Weight Weight [ ] Input and Output Intake and Output Intake and Output 01/07/19 06:59 Intake Total 70 ml Output Total 450 ml Balance -380 ml Intake Oral 70 ml Output Urine Total 450 ml # Voids 1 # Bowel Movements 1 Laboratory Labs Laboratory Tests Test 01/07/19 04:35 White Blood Count 8.4 x10^3/uL (4.0-11.0) Red Blood Count 4.27 x10^6/uL (3.50-5.40) Hemoglobin 12.1 g/dL (12.0-15.5) Hematocrit 37.5 % (36.0-47.0) Mean Corpuscular Volume 88 fL (79-100) Mean Corpuscular Hemoglobin 28 pg (25-35) Mean Corpuscular Hemoglobin Concent 32 g/dL (31-37) Red Cell Distribution Width 16.5 % (11.5-14.5) Platelet Count 156 x10^3/uL (140-400) Neutrophils (%) (Auto) 74 % (31-73) Lymphocytes (%) (Auto) 15 % (24-48) Monocytes (%) (Auto) 6 % (0-9) Eosinophils (%) (Auto) 5 % (0-3) Basophils (%) (Auto) 1 % (0-3) Neutrophils # (Auto) 6.2 x10^3uL (1.8-7.7) Lymphocytes # (Auto) 1.2 x10^3/uL (1.0-4.8) Monocytes # (Auto) 0.5 x10^3/uL (0.0-1.1) Eosinophils # (Auto) 0.4 x10^3/uL (0.0-0.7) Basophils # (Auto) 0.0 x10^3/uL (0.0-0.2) Sodium Level 143 mmol/L (136-145) Potassium Level 3.9 mmol/L (3.5-5.1) Chloride Level 105 mmol/L (98-107) Carbon Dioxide Level 30 mmol/L (21-32) Anion Gap 8 (6-14) Blood Urea Nitrogen 26 mg/dL (7-20) Creatinine 1.2 mg/dL (0.6-1.0) Estimated GFR (Cockcroft-Gault) 42.8 BUN/Creatinine Ratio 22 (6-20) Glucose Level 95 mg/dL (70-99) Calcium Level 8.8 mg/dL (8.5-10.1) Total Bilirubin 0.5 mg/dL (0.2-1.0) Aspartate Amino Transf (AST/SGOT) 21 U/L (15-37) Alanine Aminotransferase (ALT/SGPT) 16 U/L (14-59) Alkaline Phosphatase 63 U/L (46-116) Total Protein 7.3 g/dL (6.4-8.2) Albumin 3.0 g/dL (3.4-5.0) Albumin/Globulin Ratio 0.7 (1.0-1.7) Physical Exam HEENT: Neck Supple W Full Motion Chest: Symmetric LUNGS: Clear to Auscultation Heart: murmurs (4/6 systolic murmur ) Abdomen: Soft N/T Extremities: No Edema Neurology: alert, oriented, follow commands Assessment Assessment 1. Syncope; most probably vagal episode. No acute events or further dizziness 2. PAFIB; maintaining SR 3. SSS s/p PPM ([facility]). Interrogated revealed multiple episode of MAT since 01/04/19- device setting adjusted. 4. Chronic diastolic HF; compensated 6. Aortic stenosis, moderate. follows with [facility]. Has been referred to for further treatment options. 7. Ascending aortic aneurysm; 4.0 cm per echo. has been monitored on an outpatient basis 8. Hypertension; controlled 9. Orthostatic hypotension; dropped from 137/77 sitting to 83/57 standing 8. Hyperlipidemia; statin 9. ELIDA on CKD Recommendations Monitor tele overnight Discontinue lisinopril to allow for high normal baseline BP given orthostatic BP Compression stocking. Change positions slowly ASA for stroke prevention. Poor candidate for OAC given age, intermittent dizziness and falls Supportive care Awaiting OSH records from [place]. VIRGIL TYSON APRN Jan 07, 2019 13:31
--- NOTE | 2019-01-07 13:34 | EEG ---
DATE OF SERVICE: 01/07/2019 EEG NUMBER: [id number] This is an 83-year-old female patient who had syncopal versus seizure or seizure-like episodes. EEG was requested to help rule out seizure. METHODS: Twenty electrodes were applied according to the international 10-20 electrode placement system. EKG monitoring, hyperventilation, intermittent photic stimulation, monopolar and bipolar montages are routinely utilized. The record was obtained on a digital system with video monitoring. FINDINGS: 1. Background: The patient was recorded in the awake, drowsy, and sleep states. The overall background amplitude is 10-20 microvolts. A posterior dominant rhythm of 8-9 Hz is observed. 2. Abnormalities: No specific epileptiform discharge or electrographic seizure is seen. No focal or diffuse slowing. 3. Activation: Hyperventilation was performed with good efforts and normal response. Intermittent photic stimulation was performed with photic driving. No specific epileptiform discharge or electrographic seizure induced by hyperventilation or intermittent photic stimulation. IMPRESSION: This EEG is within the broad normal limits of the study for the awake, drowsy, and sleep states. No focal, lateralizing, specific epileptiform discharge or electrographic seizure is seen. KYM JEFFERSON MD DR: ZEESHAN/jorje JOB#: [id number] / [id number] KHURRAM
--- NOTE | 2019-01-07 14:23 | NUR ---
Nursing Note Orthostatic vital signs taken and called to Stephanie Miranda at this time.
--- NOTE | 2019-01-07 15:53 | PDOC ---
PROGRESS NOTES Assessment Assessment Syncopal spell. Fall. Scalp laceration. Metabolic encephalopathy. AFib. HTN. HLD. Degenerative spine disease. Pacemaker in site. RECOMMENDATIONS/PLAN: Continue medical treatment. Consulted Cardiology. Discussed with her daughter at bedside in ICU. EEG on 01/07/19 was WNL. HISTORY OF THE PRESENT ILLNESS: This is an 83-year-old female patient with history of significant valvular disease, aortic aneurysm, and CHF, who presented secondary to syncopal episode. Per ER, patient reports she was walking to the garage with her daughter and passed out. Fell to the concrete floor and hit the back of her head , suffering laceration. Patient denies any precipitating symptoms or warnings prior to fall although she reports feeling dizzy intermittently yesterday. Denies any chest pain, palpitations, diaphoresis, GILLETTE, or nausea/vomiting. Follows closely with Dr. Sierra. Has had blood pressure medications adjusted recently; report having difficulty keeping BP normalized. Deemed poor surgical candidate for valvular surgery. She was referred to [facility] for evaluation of further treatment options. PAST MEDICAL HISTORY Cardiovascular: AFIB, CHF, HTN, Hyperlipidemia, Valve insufficiency, Other ( aortic aneurysm ) Pulmonary: No pertinent hx CENTRAL NERVOUS SYSTEM: Other (no pertinet hx) GI: Diverticulosis, GERD Heme/Onc: Anemia NOS Psych: No pertinent hx Musculoskeletal: Osteoarthritis Rheumatologic: Rheumatoid arthritis Infectious disease: No pertinent hx ENT: No pertinent hx Renal/: Chronic renal insuff Endocrine: No pertinent hx Dermatology: No pertinent hx PAST SURGICAL HISTORY Pacemaker, Cholecystectomy, Colon Resection FAMILY HISTORY Heart Disease SOCIAL HISTORY Smoke: No ALCOHOL: none Drugs: None Lives: Alone ALLERGY: NKDA MEDICATIONS: Refer to [facility] REVIEW OF SYSTEMS: Refer to PMH and PSH. PHYSICAL EXAMINATION: General appearance is in no acute distress. HEENT: Normocephalic and nontraumatic. Eyes, nose, ears, and throat are unremarkable. Neck is supple. No lymphadenopathy. No crepitus. Cardiovascular: S1, S2, regular rate and rhythm. SM 4/6. Pulmonary: Clear to auscultation bilaterally. Abdomen: Bowel sounds are positive. Abdomen is soft, nontender, and nondistended. Extremities: No rash, lesions, or edema. No restriction of range of motion NEUROLOGICAL EXAMINATION: Awake. Oriented to time, place and person. PERRL. EOMI. CN: no focal findings. Muscle tone: within normal. Muscle strength: 5 DTR: 2 Plantar reflex: Flexor response bilaterally Gait: not examined in bed. Sensory exam: no abnormal findings. No cerebellar signs elicited. F-T-N test accurate. Objective Objective Vital Signs Date Time Temp Pulse Resp B/P (MAP) Pulse Ox O2 Delivery O2 Flow Rate FiO2 01/07/19 14:20 83 83/57 (66) 01/07/19 11:00 97.9 16 98 Room Air 97.9 Intake and Output 01/07/19 07:00 Intake Total 70 ml Output Total 450 ml Balance -380 ml Intake Oral 70 ml Output Urine Total 450 ml # Voids 1 # Bowel Movements 1 Vitals Signs Vitals VS - Last 72 Hours, by Label Date Time Temp Pulse Resp B/P (MAP) Pulse Ox O2 Delivery O2 Flow Rate FiO2 01/07/19 14:20 83 83/57 (66) 01/07/19 14:17 70 109/71 (84) 01/07/19 14:15 68 136/77 (96) 01/07/19 11:00 97.9 67 16 122/87 (99) 98 Room Air 97.9 01/07/19 08:56 82 153/99 01/07/19 08:56 82 153/99 01/07/19 08:00 Room Air 01/07/19 07:00 97.6 82 18 153/99 (117) 96 Room Air 97.6 01/07/19 03:00 98.2 67 130/81 (97) 94 Room Air 98.2 01/06/19 23:00 97.9 78 137/87 (104) 98 Room Air 97.9 01/06/19 20:00 Room Air 01/06/19 19:00 98.5 84 110/75 (87) 94 Room Air 98.5 01/06/19 17:55 69 156/90 01/06/19 15:00 98.6 69 156/90 (112) 98 Room Air 98.6 01/06/19 11:51 98.6 103 16 155/90 (111) 98 Room Air 98.6 01/06/19 08:09 63 155/72 01/06/19 08:00 98.6 63 16 169/90 (116) 97 Room Air 98.6 01/06/19 08:00 Room Air Laboratory Laboratory Laboratory Tests Test 01/07/19 04:35 White Blood Count 8.4 x10^3/uL (4.0-11.0) Red Blood Count 4.27 x10^6/uL (3.50-5.40) Hemoglobin 12.1 g/dL (12.0-15.5) Hematocrit 37.5 % (36.0-47.0) Mean Corpuscular Volume 88 fL (79-100) Mean Corpuscular Hemoglobin 28 pg (25-35) Mean Corpuscular Hemoglobin Concent 32 g/dL (31-37) Red Cell Distribution Width 16.5 % (11.5-14.5) Platelet Count 156 x10^3/uL (140-400) Neutrophils (%) (Auto) 74 % (31-73) Lymphocytes (%) (Auto) 15 % (24-48) Monocytes (%) (Auto) 6 % (0-9) Eosinophils (%) (Auto) 5 % (0-3) Basophils (%) (Auto) 1 % (0-3) Neutrophils # (Auto) 6.2 x10^3uL (1.8-7.7) Lymphocytes # (Auto) 1.2 x10^3/uL (1.0-4.8) Monocytes # (Auto) 0.5 x10^3/uL (0.0-1.1) Eosinophils # (Auto) 0.4 x10^3/uL (0.0-0.7) Basophils # (Auto) 0.0 x10^3/uL (0.0-0.2) Sodium Level 143 mmol/L (136-145) Potassium Level 3.9 mmol/L (3.5-5.1) Chloride Level 105 mmol/L (98-107) Carbon Dioxide Level 30 mmol/L (21-32) Anion Gap 8 (6-14) Blood Urea Nitrogen 26 mg/dL (7-20) Creatinine 1.2 mg/dL (0.6-1.0) Estimated GFR (Cockcroft-Gault) 42.8 BUN/Creatinine Ratio 22 (6-20) Glucose Level 95 mg/dL (70-99) Calcium Level 8.8 mg/dL (8.5-10.1) Total Bilirubin 0.5 mg/dL (0.2-1.0) Aspartate Amino Transf (AST/SGOT) 21 U/L (15-37) Alanine Aminotransferase (ALT/SGPT) 16 U/L (14-59) Alkaline Phosphatase 63 U/L (46-116) Total Protein 7.3 g/dL (6.4-8.2) Albumin 3.0 g/dL (3.4-5.0) Albumin/Globulin Ratio 0.7 (1.0-1.7) Medication Medications Current Medications Aspirin (Ecotrin) 81 mg DAILYWBKFT PO Last administered on 01/07/19 08:56; Start 01/06/19 at 17:30 Carvedilol (Coreg) 12.5 mg BIDWMEALS PO Last administered on 01/07/19 08:56; Start 01/06/19 at 17:30 Lisinopril (Prinivil) 5 mg DAILY PO Last administered on 01/07/19 08:56; Start 01/07/19 at 09:00; Stop 01/07/19 at 15:41; Status DC Comment Review of Relevant I have reviewed the following items claudio (where applicable) has been applied. KYM JEFFERSON MD Jan 07, 2019 15:53
[2019-01-08 03:00] VITALS: BP 149/86
[2019-01-08 04:00] LABS: BASO # 0.1 x10^3/uL (0.0-0.2); BASO % 1 % (0-3); EOS # 0.5 x10^3/uL (0.0-0.7); EOS % 6 % (0-3); HEMATOCRIT 36.8 % (36.0-47.0); LYMPH # 1.2 x10^3/uL (1.0-4.8); LYMPH % 15 % (24-48); MEAN CORPUSCULAR HEMOGLOBIN 29 pg (25-35); MEAN CORPUSCULAR HGB CONC 33 g/dL (31-37); MEAN CORPUSCULAR VOLUME 88 fL (79-100); MONO # 0.5 x10^3/uL (0.0-1.1); MONO % 6 % (0-9); NEUT # 5.8 x10^3uL (1.8-7.7); NEUT % 72 % (31-73); PLATELET COUNT 146 x10^3/uL (140-400); RED CELL DISTRIBUTION WIDTH 16.7 % (11.5-14.5)
[2019-01-08 04:26] LABS: ALBUMIN 3.1 g/dL (3.4-5.0); ALBUMIN/GLOBULIN RATIO 0.7 (1.0-1.7); CALCIUM 8.8 mg/dL (8.5-10.1); CREATININE 1.2 mg/dL (0.6-1.0); GFR 42.8; POTASSIUM 3.6 mmol/L (3.5-5.1); TOTAL BILIRUBIN 0.5 mg/dL (0.2-1.0); TOTAL PROTEIN 7.3 g/dL (6.4-8.2)
[2019-01-08 07:18] VITALS: BP 145/87
[2019-01-08] MEDS: CARVEDILOL 12.5 MG TABLET. PO SCH (08:12)
[2019-01-08] MEDS: ASPIRIN ENTERIC COATED 81 MG TABLET.DR. PO SCH (08:12)
[2019-01-08 11:00] VITALS: BP 122/80
[2019-01-08] MEDS ORDERED: ASPI-630 PO (13:36)
[2019-01-08] MEDS ORDERED: CARV25TA2 PO (13:36)
--- NOTE | 2019-01-08 14:06 | NUR ---
Discharge Note: [facility] Discharge instructions and discharge home medications reviewed with Patient and a copy given. All questions have been answered and understanding verbalized.
--- NOTE | 2019-01-08 17:46 | PDOC ---
PROGRESS NOTES Assessment Assessment Syncopal spell. Fall. Scalp laceration. Metabolic encephalopathy. AFib. HTN. HLD. Degenerative spine disease. RECOMMENDATIONS/PLAN: Continue medical treatment. Consulted Cardiology. Discussed with her daughter at bedside in CICU on 01/08/19.. EEG on 01/07/19 was WNL. HISTORY OF THE PRESENT ILLNESS: This is an 83-year-old female patient with history of significant valvular disease, aortic aneurysm, and CHF, who presented secondary to syncopal episode. Per ER, patient reports she was walking to the garage with her daughter and passed out. Fell to the concrete floor and hit the back of her head , suffering laceration. Patient denies any precipitating symptoms or warnings prior to fall although she reports feeling dizzy intermittently yesterday. Denies any chest pain, palpitations, diaphoresis, GILLETTE, or nausea/vomiting. Follows closely with Dr. Sierra. Has had blood pressure medications adjusted recently; report having difficulty keeping BP normalized. Deemed poor surgical candidate for valvular surgery. She was referred to [facility] for evaluation of further treatment options. PAST MEDICAL HISTORY Cardiovascular: AFIB, CHF, HTN, Hyperlipidemia, Valve insufficiency, Other ( aortic aneurysm ) Pulmonary: No pertinent hx CENTRAL NERVOUS SYSTEM: Other (no pertinet hx) GI: Diverticulosis, GERD Heme/Onc: Anemia NOS Psych: No pertinent hx Musculoskeletal: Osteoarthritis Rheumatologic: Rheumatoid arthritis Infectious disease: No pertinent hx ENT: No pertinent hx Renal/: Chronic renal insuff Endocrine: No pertinent hx Dermatology: No pertinent hx PAST SURGICAL HISTORY Pacemaker, Cholecystectomy, Colon Resection FAMILY HISTORY Heart Disease SOCIAL HISTORY Smoke: No ALCOHOL: none Drugs: None Lives: Alone ALLERGY: NKDA MEDICATIONS: Refer to MAR REVIEW OF SYSTEMS: Refer to PMH and PSH. PHYSICAL EXAMINATION: General appearance is in no acute distress. HEENT: Normocephalic and nontraumatic. Eyes, nose, ears, and throat are unremarkable. Neck is supple. No lymphadenopathy. No crepitus. Cardiovascular: S1, S2, regular rate and rhythm. SM 4/6. Pulmonary: Clear to auscultation bilaterally. Abdomen: Bowel sounds are positive. Abdomen is soft, nontender, and nondistended. Extremities: No rash, lesions, or edema. No restriction of range of motion NEUROLOGICAL EXAMINATION: Awake. Oriented to time, place and person. PERRL. EOMI. CN: no focal findings. Muscle tone: within normal. Muscle strength: 5 DTR: 2 Plantar reflex: Flexor response bilaterally Gait: not examined in bed. Sensory exam: no abnormal findings. No cerebellar signs elicited. F-T-N test accurate. Objective Objective Vital Signs Date Time Temp Pulse Resp B/P (MAP) Pulse Ox O2 Delivery O2 Flow Rate FiO2 01/08/19 11:00 97.9 72 14 122/80 (94) 90 Room Air 97.9 Intake and Output 01/08/19 07:00 Intake Total 75 ml Output Total 0 ml Balance 75 ml Intake Oral 75 ml Output Urine Total 0 ml # Voids 3 # Bowel Movements 1 Vitals Signs Vitals VS - Last 72 Hours, by Label Date Time Temp Pulse Resp B/P (MAP) Pulse Ox O2 Delivery O2 Flow Rate FiO2 01/08/19 11:00 97.9 72 14 122/80 (94) 90 Room Air 97.9 01/08/19 08:12 68 145/87 01/08/19 07:25 Room Air 01/08/19 07:18 97.8 68 14 145/87 (106) 93 Room Air 97.8 01/08/19 03:00 97.6 80 18 149/86 (107) 94 Room Air 97.6 01/07/19 23:00 98.1 65 16 144/80 (101) 90 Room Air 98.1 01/07/19 19:35 Room Air 01/07/19 19:00 98.0 69 18 138/82 (100) 92 Room Air 98.0 01/07/19 16:22 69 145/80 01/07/19 14:20 97.1 83 83/57 (66) 94 Room Air 97.1 01/07/19 14:17 70 109/71 (84) 01/07/19 14:15 68 136/77 (96) 01/07/19 11:00 97.9 67 16 122/87 (99) 98 Room Air 97.9 01/07/19 08:56 82 153/99 01/07/19 08:56 82 153/99 01/07/19 08:00 Room Air 01/07/19 07:00 97.6 82 18 153/99 (117) 96 Room Air 97.6 Laboratory Laboratory Laboratory Tests Test 01/08/19 03:10 White Blood Count 8.0 x10^3/uL (4.0-11.0) Red Blood Count 4.20 x10^6/uL (3.50-5.40) Hemoglobin 12.0 g/dL (12.0-15.5) Hematocrit 36.8 % (36.0-47.0) Mean Corpuscular Volume 88 fL (79-100) Mean Corpuscular Hemoglobin 29 pg (25-35) Mean Corpuscular Hemoglobin Concent 33 g/dL (31-37) Red Cell Distribution Width 16.7 % (11.5-14.5) Platelet Count 146 x10^3/uL (140-400) Neutrophils (%) (Auto) 72 % (31-73) Lymphocytes (%) (Auto) 15 % (24-48) Monocytes (%) (Auto) 6 % (0-9) Eosinophils (%) (Auto) 6 % (0-3) Basophils (%) (Auto) 1 % (0-3) Neutrophils # (Auto) 5.8 x10^3uL (1.8-7.7) Lymphocytes # (Auto) 1.2 x10^3/uL (1.0-4.8) Monocytes # (Auto) 0.5 x10^3/uL (0.0-1.1) Eosinophils # (Auto) 0.5 x10^3/uL (0.0-0.7) Basophils # (Auto) 0.1 x10^3/uL (0.0-0.2) Sodium Level 142 mmol/L (136-145) Potassium Level 3.6 mmol/L (3.5-5.1) Chloride Level 105 mmol/L (98-107) Carbon Dioxide Level 28 mmol/L (21-32) Anion Gap 9 (6-14) Blood Urea Nitrogen 24 mg/dL (7-20) Creatinine 1.2 mg/dL (0.6-1.0) Estimated GFR (Cockcroft-Gault) 42.8 BUN/Creatinine Ratio 20 (6-20) Glucose Level 103 mg/dL (70-99) Calcium Level 8.8 mg/dL (8.5-10.1) Total Bilirubin 0.5 mg/dL (0.2-1.0) Aspartate Amino Transf (AST/SGOT) 21 U/L (15-37) Alanine Aminotransferase (ALT/SGPT) 13 U/L (14-59) Alkaline Phosphatase 62 U/L (46-116) Total Protein 7.3 g/dL (6.4-8.2) Albumin 3.1 g/dL (3.4-5.0) Albumin/Globulin Ratio 0.7 (1.0-1.7) Comment Review of Relevant I have reviewed the following items claudio (where applicable) has been applied. KYM JEFFERSON MD Jan 08, 2019 17:46
--- NOTE | 2019-01-08 21:27 | DS ---
DATE OF DISCHARGE: 01/08/2019 ADMISSION DIAGNOSES: Syncope with closed head injury. Metabolic encephalopathy, hypertension, hyperlipidemia and history of pacemaker. DISCHARGE DIAGNOSIS: Resolving syncope, status post stapling of laceration to the scalp secondary to closed head injury secondary to syncope. History of aortic stenosis (it is followed at [facility]) and has been referred to for further treatment options. Ascending aortic aneurysm 4 cm. CONSULTS: Dr. Rodriguez. Dr. Granado. Dr. Reeves. Dr. Villeda. PROCEDURES: Stapling of the laceration to her scalp. HOSPITAL COURSE: The patient is a pleasant elderly female who basically had a syncopal episode, fell and struck her head. She had a laceration that was repaired in the ER. She seemed to be confused and had a little bit of metabolic encephalopathy as well. The patient was admitted. The above consults were obtained. We did interrogate her pacemaker and some adjustments were made. We did physical therapy and occupational therapy, continued her home meds. This morning I saw and examined her, she looked great. Her heart tones were normal. Her lungs were clear. I discussed the case with the nurse and the daughter. We planned to discharge if okay with consultants. DISPOSITION: Home. ACTIVITY: As tolerated. DIET: Low sodium. MEDICATIONS: Please see the MRAD. TOTAL TIME: 31 minutes. BRIDGETT GILLIS DO DR: VIRGEN/jorje JOB#: [id number] / [id number]
== END 2019-01-08 13:59 | disposition home or self-care (01) | DRG 682 ==
LOC: ER 15:32 → 1 WEST ICU 17:50 → CVICU 01-07 08:26
PROVIDERS: ADMIT Internal Medicine; ATTEND Internal Medicine
PROC: 0HQ0XZZ Repair Scalp Skin, External Approach (ICD-10-PCS; principal; 2019-01-05)
PROC: 4B02XSZ Measurement of Cardiac Pacemaker, External Approach (ICD-10-PCS; 2019-01-07)
DX: N17.0 Acute kidney failure with tubular necrosis (principal); G93.41 Metabolic encephalopathy; E44.1 Mild protein-calorie malnutrition; I13.0 Hypertensive heart and chronic kidney disease with heart failure and stage 1 through stage 4 chronic kidney disease, or unspecified chronic kidney disease; I50.32 Chronic diastolic (congestive) heart failure; S01.01XA Laceration without foreign body of scalp, initial encounter; Z82.49 Family history of ischemic heart disease and other diseases of the circulatory system; N18.9 Chronic kidney disease, unspecified; D64.9 Anemia, unspecified; Z66 Do not resuscitate; I48.0 Paroxysmal atrial fibrillation; E78.5 Hyperlipidemia, unspecified; Z95.0 Presence of cardiac pacemaker; I35.0 Nonrheumatic aortic (valve) stenosis; I71.2 Thoracic aortic aneurysm, without rupture; W18.30XA Fall on same level, unspecified, initial encounter; K21.9 Gastro-esophageal reflux disease without esophagitis; M06.9 Rheumatoid arthritis, unspecified; I95.1 Orthostatic hypotension
CPT/HCPCS: 12001; 36415; 70450; 71045; 72125; 80053; 80061; 82140; 82550; 82607; 83735; 83880; 84443; 84484; 85025; 85610; 87641; 90471; 90715; 93005; 93306; 95816; 99285-25

== ENCOUNTER → 2019-12-29 | Outpatient (CLI) | payer MEDICARE, OTHER ==
[~2019-12-29] MED LIST: ALBU2.5V14 NEB; ASPI-630 PO; CARV25TA2 PO; HYDR12.575 PO; LANS30CA PO
--- NOTE | 2019-12-29 17:48 | KCIC ---
HAND BILAT 3V, FOOT BILAT 3V HISTORY: Rheumatoid arthritis, polyarticular. COMPARISON: None 3 view left foot: Bone demineralization. No evidence of acute fracture. No aggressive bone destruction. No evidence of erosive change. Alignment and joints appear intact. No significant soft tissue abnormality. 3 view right foot: No evidence of acute fracture or aggressive bone destruction. No erosive changes are seen. Joints and alignment grossly intact. Bone demineralization. No significant soft tissue abnormality. IMPRESSION: 1. Bone demineralization. 2. No other radiographic abnormality is seen about the foot. Three-view left hand: Bone demineralization. Degenerative changes and narrowing at the scaphomultangular joint and first carpometacarpal joint. Narrowing of the proximal IP joints, greatest at the second, third and fourth, with central erosions. Milder but similar changes at the DIP joints. Nodular soft tissue swelling at the PIP joints, greatest at the second, third and fourth. Three-view right hand: Plate and screws at the fifth metacarpal. Degenerative changes at the scapholunate angle joint and first carpometacarpal joint. Mild narrowing of the interphalangeal joints. No evidence of erosive change. Mild soft tissue swelling at the second through fifth PIP joints. No aggressive bone destruction or acute fracture. IMPRESSION: 1. Findings are compatible with osteoarthritis, particularly involving the wrists and IP joints, left greater than right. 2. 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 Electronically signed by: Von Herrera MD (12/29/2019 5:45 PM) [id number]
== END ==
LOC: KCIC 12:07
PROVIDERS: ATTEND Internal Medicine Rheumatology
DX: M81.0 Age-related osteoporosis without current pathological fracture (principal); M05.79 Rheumatoid arthritis with rheumatoid factor of multiple sites without organ or systems involvement
CPT/HCPCS: 73130; 73630